=== PATIENT | female | born 1970 | race Caucasian/White ===

== ENCOUNTER 2016-12-22 23:57 | Emergency (ER) | payer SELFPAY ==
[2016-12-23] MEDS ORDERED: Ketorolac INJ* 60 MG/2 ML VIAL IM ONE (00:55)
--- NOTE | 2016-12-23 01:08 | ED ---
Librado Sanchez Erika, scribed for Júnior Campos MD on 12/23/16 at 0058 . Upper Extremity Pain - HPI Summary HPI Summary: Patient is a 46-year-old female presenting to the ED with a CC of constant left elbow and right wrist pain. Pt reports that she tripped on a pot hole and fell down [employer]. Pain was partially alleviated by 2 Aleve taken around 23:30. Pain is aggravated by movement. 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 Of Injury: Fall From A Standing Position Onset/Duration: Traumatic, Still Present Timing: Constant Severity Currently: Moderate Pain Location: Elbow - L, Wrist - R Aggravating Factor(s): Movement Alleviating Factor(s): OTC Meds Associated Signs & Symptoms: Positive: Negative - Allergies/Home Medications Allergies/Adverse Reactions: Allergies Allergy/AdvReac Type Severity Reaction Status Date / Time Codeine Allergy Rash Verified 12/23/16 00:06 Morphine Allergy See Comment Verified 12/23/16 00:06 PMH/Surg Hx/FS Hx/Imm Hx Psychiatric History: Reports: Hx Substance Abuse - Surgical History Surgery Procedure, Year, and Place: mesenteric artery surgery Infectious Disease History: Yes Infectious Disease History: Denies: Traveled Outside the [place] in Last 30 Days - Family History Family History: Denies FHx GI disease - Social History Alcohol Use: Occasionally Hx Substance Use: No Substance Use Type: Reports: None Hx Tobacco Use: No Smoking Status (MU): Never Smoked Tobacco Review of Systems Negative: Fever Positive: Arthralgia - L elbow, R wrist All Other Systems Reviewed And Are Negative: Yes Physical Exam Triage Information Reviewed: Yes Vital Signs On Initial Exam: Initial Vitals Temp Pulse Resp BP Pulse Ox 97.8 F 87 18 139/109 98 12/23/16 00:01 12/23/16 00:01 12/23/16 00:01 12/23/16 00:01 12/23/16 00:01 Vital Signs Reviewed: Yes Appearance: Positive: Well-Appearing, No Pain Distress Skin: Positive: Warm Head/Face: Positive: Normal Head/Face Inspection Eyes: Positive: NELLY ENT: Positive: Hearing grossly normal Neck: Positive: Supple Respiratory/Lung Sounds: Positive: Clear to Auscultation, Breath Sounds Present Cardiovascular: Positive: Normal Abdomen Description: Positive: Nontender, Soft Musculoskeletal: Positive: Other - mild tenderness to motion lt elbow, rt wrist do deformity Neurological: Positive: Sensory/Motor Intact, Alert, Oriented to Person Place, Time Psychiatric: Positive: Affect/Mood Appropriate Diagnostics - Vital Signs Vital Signs Temp Pulse Resp BP Pulse Ox 12/23/16 00:01 97.8 F 87 18 139/109 98 - Laboratory Lab Statement: Any lab studies that have been ordered have been reviewed, and results considered in the medical decision making process. - Radiology L elbow XR Xray Interpretation: No Acute Changes Radiology Interpretation Completed By: ED Physician R wrist XR Xray Interpretation: No Acute Changes Radiology Interpretation Completed By: ED Physician Re-Evaluation - Re-Evaluation First Eval Change: Improved Course/Dx - Course Assessment/Plan: A 46 y/o F presents to the ED with a CC of left elbow and right wrist pain. XRs show no acute findings. Patient declined Toradol in the ED. Pt was given a sling and a splint. Patient will be discharged home with follow up from orthopedics. - Diagnoses Provider Diagnoses: Multiple contusions Discharge - Discharge Plan Condition: Stable Disposition: HOME Patient Education Materials: Contusion in Adults (ED) Referrals: Sara Scott MD [Medical Doctor] - Additional Instructions: Please follow up with orthopedics. The documentation as recorded by the Librado abreu Erika accurately reflects the service I personally performed and the decisions made by , Júnior Campos MD.
[2016-12-23 01:28] VITALS: BP 121/85
--- NOTE | 2016-12-23 07:16 | RAD ---
INDICATION: Left elbow injury. TECHNIQUE: 2 views of the left elbow were obtained. FINDINGS: The bones are normal alignment. There is a joint effusion present. There is slight irregularity along the articular surface of the radial head suspicious for a nondisplaced fracture. IMPRESSION: JOINT EFFUSION AND PROBABLE NONDISPLACED FRACTURE OF THE RADIAL HEAD.
--- NOTE | 2016-12-23 07:27 | RAD ---
INDICATION: Right wrist injury. TECHNIQUE: 2 views of the right wrist were obtained. FINDINGS: There is diffuse soft tissue swelling. There is deformity of the distal radius which appears to be secondary to an old healed fracture. There are several calcific densities which project posterior to the carpal bones. The largest of these appears well-corticated and is likely old although a small acute fracture cannot be excluded. The results of this exam were discussed with Dr. Pfeiffer. IMPRESSION: LIMITED STUDY DEFORMITY OF THE DISTAL RADIUS MOST CONSISTENT WITH AN OLD FRACTURE. IN ADDITION THERE ARE SEVERAL CALCIFIC DENSITIES DORSAL TO THE CARPAL BONES. THE POSSIBILITY OF ACUTE FRACTURE CANNOT BE EXCLUDED. IF THE PATIENT'S SYMPTOMS PERSIST RECOMMEND A CT OF THE WRIST FOR FURTHER EVALUATION.
--- NOTE | 2016-12-23 10:27 | CONSULT ---
Consult Consult: Dr. Parra called after reviewing the x-rays and has a concern for possible fractures in both the4 wrist and the elbow. She was treated appropriately but I called to make sure she remained compliant with the splint and sling and to encourage F/U. I gave her Dr. 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
== END 2016-12-23 01:28 | disposition home or self-care (01) ==
LOC: ED 23:57
DX: S60.211A Contusion of right wrist, initial encounter (principal); S50.02XA Contusion of left elbow, initial encounter; W19.XXXA Unspecified fall, initial encounter; Y93.9 Activity, unspecified; Y92.9 Unspecified place or not applicable; Y99.9 Unspecified external cause status
CPT/HCPCS: 96372; 99282; J1885

== ENCOUNTER 2017-01-02 08:42 | Emergency (ER) | payer MEDICAID ==
--- NOTE | 2017-01-02 09:42 | RAD ---
HISTORY: Fall, wrist pain, left wrist COMPARISONS: None VIEWS: 3, Frontal, lateral, and oblique views of the left wrist FINDINGS: BONE DENSITY: Normal. BONES: There is a faint linear lucency of the neck of the scaphoid on the oblique view JOINTS: There is no arthropathy. ALIGNMENT: There is no dislocation. SOFT TISSUES: Unremarkable. OTHER FINDINGS: None. IMPRESSION: QUESTIONABLE NONDISPLACED SCAPHOID FRACTURE.
--- NOTE | 2017-01-02 11:31 | ED ---
Upper Extremity Pain - HPI Summary HPI Summary: 46F presents with left wrist pain for a week. She states she fell a week ago and has noticed that the pain has been constant in her left wrist. She states she did not have pain in her left wrist initially likely because she had distracting injuries in her left elbow and right wrist and states she broke her left elbow. She denies any numbness or tingling. She is right handed. - History of Current Complaint Chief Complaint: EDExtremityUpper Stated Complaint: ARM INJURY Time Seen by Provider: 01/02/17 10:54 - Allergies/Home Medications Allergies/Adverse Reactions: Allergies Allergy/AdvReac Type Severity Reaction Status Date / Time Codeine Allergy Rash Verified 01/02/17 08:45 Morphine Allergy See Comment Verified 01/02/17 08:45 PMH/Surg Hx/FS Hx/Imm Hx Endocrine/Hematology History: Denies: Hx Anticoagulant Therapy Respiratory History: Denies: Hx Asthma Psychiatric History: Reports: Hx Substance Abuse - Surgical History Surgery Procedure, Year, and Place: mesenteric artery surgery Infectious Disease History: Yes Infectious Disease History: Denies: Traveled Outside the [place] in Last 30 Days - Family History Family History: Denies FHx GI disease - Social History Alcohol Use: Occasionally Hx Substance Use: No Substance Use Type: Reports: None Hx Tobacco Use: No Smoking Status (MU): Never Smoked Tobacco Review of Systems Negative: Fever Negative: Chest Pain Negative: Shortness Of Breath Positive: Myalgia - left wrist pain All Other Systems Reviewed And Are Negative: Yes Physical Exam Triage Information Reviewed: Yes Vital Signs On Initial Exam: Initial Vitals Temp Pulse Resp BP Pulse Ox 97.7 F 83 16 152/105 98 01/02/17 08:45 01/02/17 08:45 01/02/17 08:45 01/02/17 08:45 01/02/17 08:45 Vital Signs Reviewed: Yes Appearance: Positive: Well-Appearing Skin: Positive: Warm, Dry Head/Face: Positive: Normal Head/Face Inspection Eyes: Positive: Normal, Conjunctiva Clear Respiratory/Lung Sounds: Positive: Clear to Auscultation, Breath Sounds Present Cardiovascular: Positive: Normal, RRR Musculoskeletal: Positive: Limited @ - left wrist due to pain, Other - positive snuff box tenderness, good pulses, capillary refill< 2 secs, Procedures - Splinting Location: left wrist Hand-Made Type: fiberglass Splint: thumb spica Pre-Proc Neuro Vasc Exam: normal Post-Proc Neuro Vasc Exam: normal Diagnostics - Vital Signs Vital Signs Temp Pulse Resp BP Pulse Ox 01/02/17 10:10 97.3 F 75 16 123/89 100 01/02/17 08:45 97.7 F 83 16 152/105 98 - Laboratory Lab Statement: Any lab studies that have been ordered have been reviewed, and results considered in the medical decision making process. - Radiology wrist Xray Interpretation: Positive (See Comments) - QUESTIONABLE NONDISPLACED SCAPHOID FRACTURE. Radiology Interpretation Completed By: Radiologist Course/Dx - Course Course Of Treatment: 46F presents with left wrist pain for a week. fell a week ago and had distracting injuries at the time so did not notice wrist pain. states no xray taken of wrist. is right handed. on exam has snuff box tenderness. xray read as possible scaphoid fracture. placed in thumb spica splint and told to follow up with ortho which patient already has appointment on Saturday for. patient understands and agrees with plan - Diagnoses Differential Diagnosis/HQI/PQRI: Positive: Fracture (Closed), Strain, Sprain Provider Diagnoses: Fracture of scaphoid of left wrist Discharge - Discharge Plan Condition: Good Disposition: HOME Prescriptions: HYDROcodone/ACETAMIN 5-325 MG* [[place] 5-325 TAB*] 1 tab PO Q6H PRN #10 tab MDD 4 PRN Reason: Pain Patient Education Materials: Scaphoid Fracture (ED) Forms: *Work Release Referrals: No Primary Care Phys,NOPCP [Primary Care Provider] - Additional Instructions: Follow up with ortho Take Tylenol or ibuprofen every 6 hours as needed for pain, take narcotic for break through pain every 6 hours Apply ice, rest, elevate Keep splint on area Return to ED if develop any new or worsening symptoms
[2017-01-02 11:36] VITALS: BP 123/71
== END 2017-01-02 11:58 | disposition home or self-care (01) ==
LOC: ED 08:42
DX: S62.002A Unspecified fracture of navicular [scaphoid] bone of left wrist, initial encounter for closed fracture (principal); M25.532 Pain in left wrist; W19.XXXA Unspecified fall, initial encounter; Y93.9 Activity, unspecified; Y92.9 Unspecified place or not applicable
CPT/HCPCS: 99282

== ENCOUNTER 2017-08-19 17:30 | Emergency (ER) | payer MEDICAID, OTHER ==
[2017-08-19] MEDS ORDERED: Ondansetron INJ* 2 MG/ML VIAL IV ONE (19:45)
[2017-08-19] MEDS ORDERED: HYDROmorphone INJ* 2 MG/ML CARPUJECT SYRINGE IV SLOW PU ONE (19:45)
[2017-08-19] MEDS ORDERED: NS 0.9% 1000 ML* 1,000 ML IV ONE (19:45)
[2017-08-19 19:47] LABS: Hematocrit 43 % (35-47); Hemoglobin 14.8 g/dl (12.0-16.0); Mean Corpuscular HGB Conc 34 g/dl (31-36); Mean Corpuscular Hemoglobin 32 pg (27-31); Mean Corpuscular Volume 94 fL (80-97); Mean Platelet Volume 9 um3 (7.4-10.4); Red Blood Count 4.59 10^6/ul (4.0-5.4); Red Cell Distribution Width 13 % (10.5-15); White Blood Count 6.7 10^3/ul (3.5-10.8)
[2017-08-19 19:58] LABS: ALT 12 U/L (7-52); AST 15 U/L (13-39); Albumin 4.2 g/dL (3.2-5.2); Alkaline Phosphatase 64 U/L (34-104); Anion Gap 6 mmol/L (2-11); BUN/Creatinine Ratio 15.1 (8-20); Blood Urea Nitrogen 14 mg/dL (6-24); C Reactive Protein 2.25 mg/L (< 5.00); CO2 Carbon Dioxide 24 mmol/L (22-32); Chloride 108 mmol/L (101-111); Creatine Kinase 42 U/L (10-223); EGFR African American 83.1 (>60); EGFR Non-African American 64.6 (>60); Globulin 2.5 g/dL (2-4); Glucose 89 mg/dL (70-100); Potassium 3.8 mmol/L (3.5-5.0); Sodium 138 mmol/L (133-145); Total Protein 6.7 g/dL (6.4-8.9)
[2017-08-19 20:06] LABS: Urine Bacteria Absent (Absent); Urine Bilirubin Negative (Negative); Urine Glucose Negative (Negative); Urine Nitrite Negative (Negative)
[2017-08-19 21:07] LABS: Erythrocyte Sed Rate 7 mm/Hr (0-14)
[2017-08-19] MEDS ORDERED: Iohexol 300* (CONTRAST) 10 ML SDV IV ONE (21:09)
[2017-08-20 01:18] LABS: Lipase 23 U/L (11.0-82.0)
[2017-08-20 01:20] LABS: Troponin I 0.01 ng/mL (<0.04)
[2017-08-20 01:46] LABS: Benzodiazepine Urine Screen None Detected (None Detect)
[2017-08-20] MEDS ORDERED: Iohexol 350* (CONTRAST) 500 ML MDV IV ONE ×2 (02:30→02:43)
--- NOTE | 2017-08-20 05:22 | ED ---
Chanell Sanchez Gabriel, scribed for Rikki Marte on 08/19/17 at 1929 . Abdominal Pain/Female - HPI Summary HPI Summary: This patient is a 47 year old F BIBA to [facility] accompanied by family with a chief complaint of ABD pain that began this morning and has gotten worse throughout the day. The patient rates the pain 9/10 in severity. Patient reports abdominal distention , difficulty passing gas, and diarrhea. Patient denies vomiting, chest pain, and SOB. 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 - History of Current Complaint Chief Complaint: EDAbdPain Stated Complaint: ABD PAIN Time Seen by Provider: 08/19/17 19:20 Hx Obtained From: Patient Onset/Duration: Lasting Days, Still Present Timing: Constant Severity Currently: Severe Pain Intensity: 9 Pain Scale Used: 0-10 Numeric Location: Diffuse Associated Signs and Symptoms: Positive: Negative - SOB, Diarrhea, Other: - trouble passing gas, distended ABD. Negative: Chest Pain, Vomiting Allergies/Adverse Reactions: Allergies Allergy/AdvReac Type Severity Reaction Status Date / Time Codeine Allergy Rash Verified 01/02/17 08:45 Morphine Allergy See Comment Verified 01/02/17 08:45 PMH/Surg Hx/FS Hx/Imm Hx Previously Healthy: No Endocrine/Hematology History: Denies: Hx Anticoagulant Therapy Respiratory History: Denies: Hx Asthma GI History: Reports: Other GI Disorders - SMA syndrome Psychiatric History: Reports: Hx Substance Abuse - Surgical History Surgery Procedure, Year, and Place: mesenteric artery surgery Infectious Disease History: No Infectious Disease History: Denies: Traveled Outside the [place] in Last 30 Days - Family History Known Family History: Positive: Cardiac Disease - [place] father , Hypertension, Other - breast cancer Negative: Diabetes Family History: Denies FHx GI disease - Social History Alcohol Use: Occasionally Hx Substance Use: No Substance Use Type: Reports: None Hx Tobacco Use: No Smoking Status (MU): Never Smoked Tobacco Review of Systems Negative: Chest Pain Negative: Shortness Of Breath Positive: Abdominal Pain, Diarrhea, Other - distended ABD, trouble passing gas. Negative: Vomiting All Other Systems Reviewed And Are Negative: Yes Physical Exam - Summary Physical Exam Summary: Appearance: Well appearing, no pain distress Skin: warm, dry, reflects adequate perfusion Head/face: normal Eyes: EOMI, NELLY ENT: normal Neck: supple, non-tender Respiratory: CTA, breath sounds present Cardiovascular: RRR, pulses symmetrical Abdomen: diffuse abdominal tenderness, abdominal scar Bowel: present Musculoskeletal: normal, strength/ROM intact Neuro: normal, sensory motor intact, A&Ox3 Triage Information Reviewed: Yes Vital Signs On Initial Exam: Initial Vitals Temp Pulse Resp BP Pulse Ox 98.1 F 84 16 161/98 99 08/19/17 17:46 08/19/17 17:46 08/19/17 17:46 08/19/17 17:46 08/19/17 17:46 Vital Signs Reviewed: Yes - [place] Coma Scale Coma Scale Total: 15 Diagnostics - Vital Signs Vital Signs Temp Pulse Resp BP Pulse Ox 08/19/17 17:46 98.1 F 84 16 161/98 99 - Laboratory Lab Results: Lab Results 08/19/17 08/19/17 08/19/17 Range/Units 19:30 19:30 19:30 WBC 6.7 (3.5-10.8) 10^3/ul RBC 4.59 (4.0-5.4) 10^6/ul Hgb 14.8 (12.0-16.0) g/dl Hct 43 (35-47) % MCV 94 (80-97) fL MCH 32 H (27-31) pg MCHC 34 (31-36) g/dl RDW 13 (10.5-15) % Plt Count 220 (150-450) 10^3/ul MPV 9 (7.4-10.4) um3 Neut % (Auto) 60.1 (38-83) % Lymph % (Auto) 32.1 (25-47) % [place] % (Auto) 5.8 (1-9) % Eos % (Auto) 1.0 (0-6) % Baso % (Auto) 1.0 (0-2) % Absolute Neuts (auto) 4.0 (1.5-7.7) 10^3/ul Absolute Lymphs (auto) 2.2 (1.0-4.8) 10^3/ul Absolute Monos (auto) 0.4 (0-0.8) 10^3/ul Absolute Eos (auto) 0.1 (0-0.6) 10^3/ul Absolute Basos (auto) 0.1 (0-0.2) 10^3/ul Absolute Nucleated RBC 0 10^3/ul Nucleated RBC % 0 ESR 7 (0-14) mm/Hr INR (Anticoag Therapy) (0.89-1.11) APTT (26.0-36.3) seconds Sodium 138 (133-145) mmol/L Potassium 3.8 (3.5-5.0) mmol/L Chloride 108 (101-111) mmol/L Carbon Dioxide 24 (22-32) mmol/L Anion Gap 6 (2-11) mmol/L BUN 14 (6-24) mg/dL Creatinine 0.93 (0.51-0.95) mg/dL Est GFR ( Amer) 83.1 (>60) Est GFR (Non-Af Amer) 64.6 (>60) BUN/Creatinine Ratio 15.1 (8-20) Glucose 89 (70-100) mg/dL Lactic Acid 0.9 (0.5-2.0) mmol/L Calcium 9.0 (8.6-10.3) mg/dL Total Bilirubin 0.40 (0.2-1.0) mg/dL AST 15 (13-39) U/L ALT 12 (7-52) U/L Alkaline Phosphatase 64 (34-104) U/L Total Creatine Kinase 42 (10-223) U/L Troponin I 0.01 (<0.04) ng/mL C-Reactive Protein 2.25 (< 5.00) mg/L Total Protein 6.7 (6.4-8.9) g/dL Albumin 4.2 (3.2-5.2) g/dL Globulin 2.5 (2-4) g/dL Albumin/Globulin Ratio 1.7 (1-3) Lipase 23 (11.0-82.0) U/L Urine Color Urine Appearance Urine pH (5-9) Ur Specific [place] (1.010-1.030) Urine Protein (Negative) Urine Ketones (Negative) Urine Blood (Negative) Urine Nitrate (Negative) Urine Bilirubin (Negative) Urine Urobilinogen (Negative) Ur Leukocyte Esterase (Negative) Urine WBC (Auto) (Absent) Urine RBC (Auto) (Absent) Ur Squamous Epith Cells (Absent) Urine Bacteria (Absent) Urine Glucose (Negative) Urine Opiates Screen (None Detect) Ur Barbiturates Screen (None Detect) Ur Phencyclidine Scrn (None Detect) Ur Amphetamines Screen (None Detect) U Benzodiazepines Scrn (None Detect) Urine Cocaine Screen (None Detect) U Cannabinoids Screen (None Detect) 08/19/17 08/19/17 08/20/17 Range/Units 19:30 19:30 01:16 WBC (3.5-10.8) 10^3/ul RBC (4.0-5.4) 10^6/ul Hgb (12.0-16.0) g/dl Hct (35-47) % MCV (80-97) fL MCH (27-31) pg MCHC (31-36) g/dl RDW (10.5-15) % Plt Count (150-450) 10^3/ul MPV (7.4-10.4) um3 Neut % (Auto) (38-83) % Lymph % (Auto) (25-47) % [place] % (Auto) (1-9) % Eos % (Auto) (0-6) % Baso % (Auto) (0-2) % Absolute Neuts (auto) (1.5-7.7) 10^3/ul Absolute Lymphs (auto) (1.0-4.8) 10^3/ul Absolute Monos (auto) (0-0.8) 10^3/ul Absolute Eos (auto) (0-0.6) 10^3/ul Absolute Basos (auto) (0-0.2) 10^3/ul Absolute Nucleated RBC 10^3/ul Nucleated RBC % ESR (0-14) mm/Hr INR (Anticoag Therapy) 0.82 L (0.89-1.11) APTT 28.5 (26.0-36.3) seconds Sodium (133-145) mmol/L Potassium (3.5-5.0) mmol/L Chloride (101-111) mmol/L Carbon Dioxide (22-32) mmol/L Anion Gap (2-11) mmol/L BUN (6-24) mg/dL Creatinine (0.51-0.95) mg/dL Est GFR ( Amer) (>60) Est GFR (Non-Af Amer) (>60) BUN/Creatinine Ratio (8-20) Glucose (70-100) mg/dL Lactic Acid (0.5-2.0) mmol/L Calcium (8.6-10.3) mg/dL Total Bilirubin (0.2-1.0) mg/dL AST (13-39) U/L ALT (7-52) U/L Alkaline Phosphatase (34-104) U/L Total Creatine Kinase (10-223) U/L Troponin I (<0.04) ng/mL C-Reactive Protein (< 5.00) mg/L Total Protein (6.4-8.9) g/dL Albumin (3.2-5.2) g/dL Globulin (2-4) g/dL Albumin/Globulin Ratio (1-3) Lipase (11.0-82.0) U/L Urine Color Yellow Urine Appearance Cloudy Urine pH 5.0 (5-9) Ur Specific [place] 1.016 (1.010-1.030) Urine Protein Negative (Negative) Urine Ketones Negative (Negative) Urine Blood 3+ H (Negative) Urine Nitrate Negative (Negative) Urine Bilirubin Negative (Negative) Urine Urobilinogen Negative (Negative) Ur Leukocyte Esterase Negative (Negative) Urine WBC (Auto) Trace(0-5/hpf) (Absent) Urine RBC (Auto) 3+(>10/hpf) H (Absent) Ur Squamous Epith Cells Present H (Absent) Urine Bacteria Absent (Absent) Urine Glucose Negative (Negative) Urine Opiates Screen None detected (None Detect) Ur Barbiturates Screen None detected (None Detect) Ur Phencyclidine Scrn None detected (None Detect) Ur Amphetamines Screen None detected (None Detect) U Benzodiazepines Scrn None detected (None Detect) Urine Cocaine Screen None detected (None Detect) U Cannabinoids Screen None detected (None Detect) Result Diagrams: 08/19/17 19:30 08/19/17 19:30 Lab Statement: Any lab studies that have been ordered have been reviewed, and results considered in the medical decision making process. - CT CT ABD/Pelvis CT Interpretation Completed By: Radiologist - No acute disease ED physician has reviewed this radiology report and agrees. - EKG 19:52 Cardiac Rate: Bradycardia EKG Rhythm: Sinus Bradycardia - 57 BPM EKG Interpretation: No acute changes Abdominal Pain Fem Course/Dx - Course Course Of Treatment: This patient is a 47 year old F BIBA to [facility] accompanied by family with a chief complaint of ABD pain that began this morning and has gotten worse throughout the day. An EKG reveals sinus bradycardia at [address] ABD/ Pelvis reveals, per radiologist, No acute disease. Blood and urine were obtained with test results showing no significant abnormalities. In the ED course the patient was given IV fluids, Hydromorphone HCL, Iohexol, and Ondansetron. Pt is in pain and is asking for Dilaudid, there is no indication that the patient needs Dilaudid presently. We discussed patient care with Dr. Lanier and they suggested to discharge the patient. cta of abdomen is negative for sma syndrome,. Patient will be discharged with follow up with GI. The patient is agreeable with this plan. - Diagnoses Differential Diagnosis: Positive: Appendicitis, Bowel Obstruction, Diverticulitis, Irritable Bowel Syndrome, Pancreatitis, Renal Colic Provider Diagnoses: Pain, abdominal, nonspecific - Provider Notifications Discussed Care Of Patient With: Susy Lanier Time Discussed With Above Provider: 00:45 Instructed by Provider To: Other - We discussed patient care with Dr. Lanier and they agreed to admit the patient for non-specific ABD pain. Discharge - Discharge Plan Condition: Stable Disposition: HOME Prescriptions: Pantoprazole TAB (NF) [Protonix TAB (NF)] 40 mg PO DAILY #30 tab Patient Education Materials: Pantoprazole (By mouth) Referrals: No Primary Care Phys,NOPCP [Primary Care Provider] - Nahid Art MD [Medical Doctor] - 3 Days Additional Instructions: RETURN TO THE EMERGENCY DEPARTMENT FOR CHANGING OR WORSENING SYMPTOMS. The documentation as recorded by the Chanell abreu Gabriel accurately reflects the service I personally performed and the decisions made by , Rikki Marte.
[2017-08-20 05:23] VITALS: BP 107/79
--- NOTE | 2017-08-20 06:19 | CONS ---
CONSULTATION REPORT: DATE OF CONSULTATION: 08/20/17 - EMERGENCY DEPT TIME OF EVALUATION: 0100 PRIMARY CARE PHYSICIAN: The patient does not have a primary care physician. REQUESTING PHYSICIAN FOR CONSULTATION: Rikki Marte MD REASON FOR CONSULTATION: Evaluation for admission. CHIEF COMPLAINT: Abdominal pain. HISTORY OF PRESENT ILLNESS: This is a 47-year-old female with a past medical history of SMA obstruction with intestinal ischemia, status post surgical repair back in 2012, who presents to the emergency room with abdominal pain. The patient states this started this morning, it was dull in nature, and she began walking around and it became worse, persistently worse with ambulating. She has been nauseated. No vomiting. She has had loose stools all day. She has not yet plugged in to see a primary care physician for the past year since she has moved here from [place]. She has had decrease in appetite. Her last menstrual period was 2 days ago. She denies any recent antibiotics. No recent travel. No shortness of breath. No chest pain. No URI illness. She states her symptoms are similar to when she had her emergency surgery for her SMA obstruction. Otherwise, remaining review of systems is negative. In the emergency room, the patient had labs, imaging. She was given 1 mg of Dilaudid, referred to the hospitalist service for further evaluation. PAST MEDICAL HISTORY: 1. History of SMA obstruction with intestinal ischemia, status post duodenal repair and surgery in [facility] in 2012. 2. History of pelvic congestion syndrome. 3. History of DVT. 4. History of cholecystectomy. 5. History of multiple wrist surgeries on the right. MEDICATIONS: None. ALLERGIES: CODEINE and MORPHINE. FAMILY HISTORY: No history of GI or vascular issues. 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 She quit smoking 15 years ago. She drinks socially and no illicit drug use. Her healthcare proxy is her ex- , Basil Hauser. Code status is full code. REVIEW OF SYSTEMS: A 14-point review of systems as mentioned in the HPI. Pertinent positives and negatives as mentioned in the HPI, otherwise negative. PHYSICAL EXAM: Vitals: Temp 98.1, pulse rate 84, respiratory rate 16, oxygen saturation 99% on room air, blood pressure 161/98. General: Some mild discomfort. No acute distress. HEENT: Head is normocephalic. Pupils are equal and reactive. Anicteric. Oropharynx: Mucous membranes are moist. No erythema or exudate. Neck: Supple. No lymphadenopathy. Cardiac: Regular rate and rhythm. No murmurs, rubs, or gallops. Respiratory: Clear to auscultation. No wheezes, rhonchi, or rales. Abdomen: Hyperactive bowel sounds, soft, mild distention. Tenderness, mostly in the epigastric, left upper quadrant region. No rebound or guarding. Extremities: No clubbing, cyanosis, or edema. +1 DPs. Neurologic: Alert and oriented x3. No focal neurologic deficits. DIAGNOSTIC STUDIES/LAB DATA: White count 6.7, hemoglobin 14.8, hematocrit 43, platelets 220. INR 0.82. Sodium 138, potassium 3.8, chloride 108, bicarb 24, BUN 14, creatinine 0.93, glucose 89. Troponin 0.01. Lipase 23. Urinalysis: + 3 blood, presence of squamous cells. Urine tox screen is negative. Abdominal and pelvis CT, status post surgery of the stomach and proximal small bowel without evidence for gastric or small bowel obstruction, status post cholecystectomy. There was prominent intrahepatic and extrahepatic biliary system, likely post cholecystectomy. She had a small low-attenuation lesion of the liver dome, cannot be adequately characterized. Kidneys enhanced and excreted contrast symmetrically without hydro. No free air or significant ascites. ASSESSMENT: This is a 47-year-old female with a past medical history of SMA obstruction with duodenal repair, who presents to the emergency room with worsening abdominal pain. 1. Abdominal pain. Assessment: The patient's laboratory workup and imaging are unremarkable; however, pain appears to be out of proportion to her physical exam. There is concern that this is similar to her presentation 4 years ago when she had an SMA obstruction. I recommend that this needs to be further evaluated with imaging prior to admission. If this is a SMA issue, then she needs to be seen by Vascular Surgery, especially if she had emergent surgery in the past with intestinal ischemia. I recommended this to Dr. Marte further evaluation. If this is unremarkable, then we will admit her for observation. TIME SPENT: Patient time, greater than 60 minutes spent doing this consultation , more than half time spent in direct patient contact. Thank you for this consultation. [id number]/[facility] #: [id number] [facility]
--- NOTE | 2017-08-20 07:45 | RAD ---
INDICATION: Diffuse abdominal tenderness. COMPARISON: Comparison is made with a prior CT of the abdomen and pelvis from July 30, 2008. TECHNIQUE: A CT scan of the abdomen and pelvis was performed with intravenous and oral contrast following intravenous injection of 97 ml of Omnipaque 300 nonionic contrast. Contiguous axial sections were obtained from the lung bases through the symphysis pubis. Images were reconstructed in the coronal and sagittal planes. FINDINGS: There is mild dependent bilateral lower lobe subsegmental atelectasis. No pleural effusion is present. The liver and spleen are normal in size without significant focal abnormality. There is a hypodense lesion in the superior portion of the right hepatic lobe measuring 1.2 cm in size which is unchanged from the prior CT study. The patient is status post cholecystectomy. There is mild extrahepatic ductal distention which appears similar to the prior study consistent with postcholecystectomy changes. The pancreas appears slightly prominent although unchanged from the prior study. The kidneys and adrenal glands are normal in size. No hydronephrosis is seen. No significant focal renal abnormality is seen. The aorta is normal in caliber and demonstrates homogeneous contrast opacification. No significant enlarged retroperitoneal lymph nodes are seen. There are post surgical changes in the right upper quadrant which involve the small bowel and appear to involve the adjacent antrum of the stomach. There is mild dilatation of the proximal duodenum. The small bowel and colon otherwise appears nondistended. The appendix is not visualized. There is no evidence for diverticulitis or colitis. The uterus is anteverted and mildly enlarged. No free intraperitoneal air or fluid is seen. No significant focal osseous abnormality is seen. IMPRESSION: 1. POSTSURGICAL CHANGES IN THE RIGHT UPPER QUADRANT INVOLVING THE SMALL BOWEL AND STOMACH. THERE IS DILATATION OF THE PROXIMAL DUODENUM. 2. STATUS POST CHOLECYSTECTOMY. 3. STABLE SMALL HYPODENSE HEPATIC LESION.
--- NOTE | 2017-08-20 09:20 | RAD ---
Indication: SMA syndrome, abdominal pain. Contrast: Administered 83.3 ml of OMNIPAQUE 350 mg/ml CTA of the abdominal aorta was performed. Coronal and sagittal reconstructed images were obtained. Comparison is made with previous exam dated August 19, 2017. Celiac axis and superior mesenteric artery are grossly unremarkable. The origins are widely patent on both the celiac axis and the superior mesenteric artery. Inferior mesenteric artery also appears to be widely patent. The patient is status post resection of the horizontal portion of the duodenum. Anastomosis is noted in the right upper quadrant. No evidence of free intraperitoneal air is noted. No evidence of bowel obstruction is noted with contrast throughout the colon. The lung bases demonstrate no pleural fluid, nodules or masses. Heart is of normal size without evidence of pericardial effusion. Spleen is normal in size. No adrenal lesions are noted. The kidneys demonstrate symmetric nephrograms without focal lesions. No retroperitoneal lymphadenopathy is noted. No dilated loops of bowel are noted. CT of the pelvis demonstrates no retroperitoneal or pelvic adenopathy. Urinary bladder is distended. Uterus and ovaries are unremarkable. No hernias are noted. The abdominal aorta demonstrates no evidence of aneurysmal dilatation. Common and external iliac arteries are grossly unremarkable. IMPRESSION: Postoperative changes are noted. Superior mesenteric artery and celiac axis are widely patent. No evidence of any other masses or fluid collections are noted.
== END 2017-08-20 05:24 | disposition home or self-care (01) ==
LOC: ED 17:30
DX: R10.9 Unspecified abdominal pain (principal)
CPT/HCPCS: 36415; 74174; 74177; 80053; 80307; 81003; 81015; 82550; 83605; 83690; 84484; 84702; 85025; 85610; 85652; 85730; 86140; 93005; 96374; 96375; 99285; J1170; J2405; Q9967

== ENCOUNTER 2018-07-18 07:24 | Day surgery (SDC) | payer OTHER ==
[~2018-07-18 07:24] MED LIST: Buffered Lidocaine 0.9% SYRIN* 5 ML/SYR SYRINGE INTRADERM ONE; Famotidine IV* 10 MG/ML 2 ML (20 mg) IV ONE
[2018-07-18] MEDS ORDERED: Heparin VIAL(*) 5000 UNITS/ML VIAL (FIVE THOUSAND) ONE (07:33)
[2018-07-18] MEDS ORDERED: Buffered Lidocaine 0.9% SYRIN* 5 ML/SYR SYRINGE ONE (07:34)
[2018-07-18] MEDS ORDERED: Famotidine IV* 10 MG/ML 2 ML (20 mg) ONE (07:34)
[2018-07-18 08:13] LABS: Hematocrit 35 % (35-47); Hemoglobin 11.6 g/dl (12.0-16.0); Mean Corpuscular HGB Conc 33 g/dl (31-36); Mean Corpuscular Hemoglobin 28 pg (27-31); Mean Corpuscular Volume 83 fL (80-97); Mean Platelet Volume 9.1 um3 (7.4-10.4); Platelet Count 242 10^3/ul (150-450); Red Cell Distribution Width 15 % (10.5-15); White Blood Count 5.1 10^3/ul (3.5-10.8)
[2018-07-18] MEDS ORDERED: Midazolam* 1 MG/ML 5 ML VIAL (5 MG) ONE (08:31)
[2018-07-18] MEDS ORDERED: Dexamethasone IV* 4 MG/ML 1 ML (4 MG) ONE (08:31)
[2018-07-18] MEDS ORDERED: Ketorolac INJ* 30 MG/ML 1 ML VIAL ONE (08:31)
[2018-07-18] MEDS ORDERED: fentaNYL* 50 MCG/ML 2 ML VIAL (100 MCG VIAL) ONE ×3 (08:31→11:56)
[2018-07-18] MEDS ORDERED: Propofol* 10 MG/ML 20 ML BTL IV PUSH ONE (08:31)
[2018-07-18] MEDS ORDERED: Ondansetron INJ* 2 MG/ML VIAL ONE (08:31)
[2018-07-18] MEDS ORDERED: Lidocaine 2% PF * 5 ML VIAL ONE (08:31)
[2018-07-18] MEDS ORDERED: Metoclopramide IV* 5 MG/ML 2 ML VIAL ONE (09:07)
[2018-07-18] MEDS ORDERED: Naloxone* 0.4 MG/ML 1 ML VIAL IV PRN (09:52)
[2018-07-18] MEDS ORDERED: Ondansetron INJ* 2 MG/ML VIAL IV PRN (09:52)
[2018-07-18] MEDS ORDERED: Ibuprofen TAB* 600 MG PO PRN (11:01)
[2018-07-18] MEDS ORDERED: HYDROcodone/ACETAMIN 5-325 MG* 1 TAB PO PRN (11:02)
[2018-07-18] MEDS: fentaNYL* 50 MCG/ML 2 ML VIAL (100 MCG VIAL) IV PRN ×2 (11:57→12:22)
[2018-07-18] MEDS ORDERED: Ibuprofen TAB* 600 MG ONE (12:14)
[2018-07-18 12:48] VITALS: BP 120/80
--- NOTE | 2018-07-19 04:17 | OP ---
CC: [facility] OPERATIVE REPORT: DATE OF OPERATION: 07/18/18 DATE OF : 70 SURGEON: Dr. Mujica. ANESTHESIOLOGIST: Dr. Gonzales. ANESTHESIA: General endotracheal anesthesia. PRE-OP DIAGNOSIS: Menorrhagia. POST-OP DIAGNOSIS: Menorrhagia. OPERATIVE PROCEDURE: Dilation, hysteroscopy, curettage, NovaSure ablation. ESTIMATED BLOOD LOSS: Minimal, less than 20 cc. FINDINGS: Posterior cervix, midline uterus. No adnexal masses palpated. On hysteroscopy, the endom etrium appeared fluffy throughout with areas that appeared consistent with endometrial polyps. Cavit y length was 5.5 cm. The cavity width was 4.7. The power was 142 and the time was 63 seconds. The fluid deficit was 200 cc. After the NovaSure ablation, on hysteroscopy, the endometrium appeared cau terized throughout. The uterus sounded to 10. COMPLICATIONS: None. COUNTS: Sponge, lap, and needle count correct x2. CONDITION: The patient was brought to the recovery room, awake and stable condition. DESCRIPTION OF PROCEDURE: The patient was brought to the operating room. When general endotracheal was found to be adequate, the patient was prepped and draped in the usual sterile fashion in the dors al lithotomy position. Sequential compression devices were placed and activated and used throughout the surgery. Time-out was performed. Exam under anesthesia was performed with the above findings not ed. A long weighted speculum was placed in the vagina. The anterior lip of the cervix was grasped w ith a single-tooth tenaculum. The uterus was sounded to 10. Cervical length was determined to be 4. 5 and the cervix was gently and easily dilated with a graduated Hegar dilators. The hysteroscope was introduced with the above findings noted. The hysteroscope was removed. Endometrial curettage was p erformed and endometrial curettings were sent to pathology. The NovaSure was placed, tested and acti vated and the time was 63 seconds. The NovaSure was removed. The hysteroscope was reintroduced and an excellent ablation was noted. Hysteroscope was removed. The single-tooth tenaculum was removed f rom the anterior lip of the cervix. Excellent hemostasis was noted. All instruments were removed fr om the vagina and the patient was brought to the recovery room, awake and in stable condition. [id number]/[facility] #: [id number]
== END 2018-07-18 13:12 | disposition home or self-care (01) ==
LOC: OR 07:24
PROVIDERS: ATTEND Obstetrics & Gynecology
DX: N92.1 Excessive and frequent menstruation with irregular cycle (principal); N85.01 Benign endometrial hyperplasia; Z87.891 Personal history of nicotine dependence; Z88.5 Allergy status to narcotic agent
CPT/HCPCS: 36415; 81025; 85027; 86850; 86900; 86901; 88305; A9270-GY; J1100; J1644; J1885; J2250; J2405; J2704; J2765; J3010

== ENCOUNTER 2018-11-16 05:20 | Emergency (ER) | payer OTHER ==
--- OUTSIDE RECORDS SUMMARY | 2018-11-16 05:28 | XMS REPORT | Continuity of Care Document ---
:1970 External Reference #:[id number] Author Name Micaela Rivera Care Team Providers Name Role Phone Mynor Daugherty D.O. Primary Care Physician Unavailable Payers Date Identification Numbers Payment Provider Subscriber Policy Number: [id number] Pepe Hauser Group Number: [id number] [address] PayID: [id number] [place] [address] Advance Directives Description No Information Available Problems Date Description Provider Status Onset: 11/14/2018 Closed trimalleolar fracture Nima Rivera MD Active Family History Date Family Member(s) Observation Comments Father Hypertension Father Heart Disease [place] x 2 Mother Hypertension Siblings 1 Sister at 40 of breast cancer. 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 Cigarette Use Quit 10 Years Ago ETOH Use Currently consumes 1-2 drinks per day x alcohol 4 or more times a week Tobacco Use Start: Unknown End: Patient is a former quit 15 years ago Unknown smoker Smoking Status Reviewed: 11/14/18 Patient is a former quit 15 years ago smoker Seat Belt/Car Seat always uses seat belt Allergies, Adverse Reactions, Alerts Date Description Reaction Status Severity Comments 12/24/2016 Codeine Active 12/24/2016 Morphine Active Medications Medication Date Status Form Strength Qnty SIG Indications Ordering Provider Enoxaparin Active Solution 40mg/0.4ML S82.852A Nima Sodium 019 MD Nicole Oxycodone HCL Active Unknown 000 Hydrocodone Hx Tablets 5-325mg 12tabs one tabet Dvorah Bitartrate/Fidel 018 - po q6 prn MD [place] taminophen strong 018 pain Ibuprofen Hx Tablets 600mg 20tabs one Dvorah 018 - tablet by MD [place] mouth q6 018 as needed pain Hydrocodone Hx Tablets 5-300mg 12tabs one Dvorah Bitartrate/Fidel 018 - tablet po MD [place] taminophen q6 hours 018 prn strong pain No Active Hx Unknown Medications 018 - 018 Alprazolam Hx Tablets 1mg 1-2 tabs Unknown 000 - as needed for sleep 018 Zyrtec Allergy Hx Capsules 10mg take one Unknown 000 - tablet by mouth in 019 the evening Mucinex Hx Tablets ER 600mg twice a Unknown 000 - 12HR day as needed 019 Immunizations Description No Information Available Vital Signs Date Vital Result Comment 11/14/2018 11:39am Height 64 inches 5'4" Weight 170.00 lb BP Systolic 150 mmHg BP Diastolic 98 mmHg Respiratory Rate 14 /min Body Temperature 96.7 F Pain Level 7 BMI (Body Mass Index) 29.2 kg/m2 07/28/2018 1:01pm Height 64 inches 5'4" Weight 174.50 lb with boots Heart Rate 80 /min BP Systolic Sitting 138 mmHg BP Diastolic Sitting 82 mmHg Body Temperature 98.5 F O2 % BldC Oximetry 97 % BMI (Body Mass Index) 29.9 kg/m2 07/14/2018 8:35am Height 64 inches 5'4" Weight 174.25 lb Heart Rate 76 /min BP Systolic Sitting 124 mmHg BP Diastolic Sitting 82 mmHg Body Temperature 98.6 F O2 % BldC Oximetry 99 % BMI (Body Mass Index) 29.9 kg/m2 06/23/2018 9:34am Height 64 inches 5'4" Weight 174.50 lb Heart Rate 72 /min BP Systolic Sitting 118 mmHg BP Diastolic Sitting 78 mmHg Body Temperature 98.2 F O2 % BldC Oximetry 97 % BMI (Body Mass Index) 29.9 kg/m2 06/16/2018 11:36am Height 64 inches 5'4" Weight 175.00 lb Heart Rate 82 /min BP Systolic Sitting 118 mmHg BP Diastolic Sitting 78 mmHg Body Temperature 98.7 F O2 % BldC Oximetry 97 % BMI (Body Mass Index) 30.0 kg/m2 06/09/2018 9:02am Height 64 inches 5'4" Weight 174.00 lb Heart Rate 75 /min BP Systolic Sitting 122 mmHg BP Diastolic Sitting 78 mmHg Body Temperature 98.3 F O2 % BldC Oximetry 97 % BMI (Body Mass Index) 29.9 kg/m2 01/02/2017 1:53pm Height 64 inches 5'4" Weight 150.00 lb Heart Rate 78 /min BP Systolic 130 mmHg BP Diastolic 84 mmHg Respiratory Rate 16 /min Body Temperature 97.4 F Pain Level 5 BMI (Body Mass Index) 25.7 kg/m2 12/24/2016 11:13am Height 64 inches 5'4" Weight 150.00 lb Heart Rate 78 /min BP Systolic 110 mmHg BP Diastolic 72 mmHg Respiratory Rate 14 /min Body Temperature 98.2 F Pain Level 8 BMI (Body Mass Index) 25.7 kg/m2 Results Test Date Facility Test Result H/L Range Note Laboratory test 07/18/2018 [facility] Surgical SEE RESULT [address] [place] [address] [phone] CBC No Diff 07/18/2018 [facility] White Blood 5.1 10^3/uL N 3.5-10.[address] [place] [address] [phone] Red Blood Count 4.20 10^6/uL N 4.00-5.40 Hemoglobin 11.6 g/dL Low 12.0-16.0 Hematocrit 35 % N 35-47 Mean Corpuscular Volume 83 fL N 80-97 Mean Corpuscular Hemoglobin 28 pg N 27-31 Mean Corpuscular HGB Conc 33 g/dL N 31-36 Red Cell Distribution Width 15 % N 10.5-15 Platelet Count 242 10^3/uL N 150-450 Mean Platelet Volume 9.1 um3 N 7.4-10.4 Type & Screen 07/18/2018 [facility] Patient Blood Type AB Positive [address] [place] [address] [phone] Antibody Screen NEGATIVE 1 SEE RESULT BELOW Name: KARLEE HAUSER : [address]: Adin Mujica MD Acct: [id number] Unit: [id number] AGE: 48 Location: OR Re07/18/18 SEX: F Status: [facility] [place] SPEC: [id number] FOX: 07/18/[address] [facility] [address]: Adin Mujica MD REQ: [id number] RECD: 07/18/18 STATUS: SOUT _ ORDERED: LEVEL 4 FINAL DIAGNOSIS Uterus, endometrium, curettage: -- Simple hyperplasia without atypia. -- Focal glandular and stromal breakdown. -- Few fragments of smooth muscle suggestive of submucosal leiomyoma. PRE-OPERATIVE DIAGNOSIS Excessive and frequent menstruation with irregular cycle GROSS DESCRIPTION The specimen is received in formalin labeled, Endometrial Curettings, and consists of a 3.8 x 2.9 x 0.5 cm aggregate of mcneal-red irregular soft tissue fragments admixed with red-brown blood clot. Entirely submitted, two cassettes. Signed by and Reported on: Lior Tavares MD [address] END OF REPORT DEPARTMENT OF PATHOLOGY, [address] [place] [address] Lior Tavares M.D. Director [facility] # [id number] Procedures Date Code Description Status 11/14/2018 15278 application of short leg splint Completed 07/18/2018 44859 Hysteroscopy With Endometrial Ablation (Any Method) Completed 06/16/2018 88954 Endometrial Sampling W Or W/O Endocervical BX W Or W/O Completed Cerv Dilat 09/23/2017 [id number] Mammogram Completed Encounters Type Date Location Provider Dx Diagnosis Office Visit 07/28/2018 1:00p [facility] Adin Mujica MD R30.0 Dysuria of [employer] at [place] N85.00 Endometrial hyperplasia, unspecified Z86.718 Personal history of other venous thrombosis and embolism Z80.3 Family history of malignant neoplasm of breast [facility] N92.1 Excessive and [facility] frequent at [place] menstruation with irregular cycle N88.2 Stricture and stenosis of cervix uteri Z86.718 Personal history of other venous thrombosis and embolism Z80.3 Family history of malignant neoplasm of breast Office Visit 06/09/2018 9:30a [facility] Adin Mujica, Z01.419 Encntr for experience specialist [facility] at MD exam (general) [place] (routine) w/o abn findings N92.1 Excessive and frequent menstruation with irregular cycle Z80.3 Family history of malignant neoplasm of breast Z87.410 Personal history of cervical dysplasia Z86.718 Personal history of other venous thrombosis and embolism Office Visit 04/03/2018 [facility] J S. R10.12 Left upper 12:00p [facility] MD quadrant pain AT [place] Office Visit 08/20/2017 [facility] Susy Lanier, R10.10 Upper abdominal 10:17a Assoc,pc DO pain, Hospitalists unspecified K55.069 Acute infarction of intestine, part and extent unspecified R11.0 Nausea Office Visit 01/02/2017 2:00p Orthopedic Sara S63.512A Sp[facility] carpal joint of C.M.A. left wrist, initial encounter Office Visit 12/24/2016 10:45a Orthopedic Sara S63.511A Sp[facility] carpal joint of C.M.A. right wrist, initial encounter S52.125A Nondisp fx of head of left radius, init for clos fx Office 09/14/2008 DO Not Use Catie 535.50 Gastritis & Visit 8:30a [facility] Varn, N.P. Gastroduodenitis Unspec W/O Hemorrhage 311 Depressive Disorder Not Elsewhere Spec Office 08/23/2008 DO Not Use Catie 535.50 Gastritis & Visit 10:15a [facility] [facility], N[facility] Gastroduodenitis Unspec W/O Hemorrhage 729.1 Myalgia & Myositis Unspec 719.40 Pain Joint Site Unspec Office Visit 08/03/2008 DO Not Use Catie Varn, 789.06 Pain Abdominal 3:30p [facility] Epigastric 789.01 Pain Abdominal Right Upper Quadrant Office Visit 07/30/2008 1:00p DO Not Use Catie Varn, 789.03 Pain Abdominal [facility] Right Lower Quadrant 789.01 Pain Abdominal Right Upper Quadrant 599.7 Hematuria Office Visit 03/09/2008 8:45a DO Not Use Catie Varn, 724.2 Lumbago [facility] 311 Depressive Disorder Not Elsewhere Spec Office Visit 02/27/2008 2:15p DO Not Use Catie Varn, 724.2 Lumbago [facility] 728.85 Spasm Muscle Office Visit 09/30/2007 3:45p DO Not Use Catie Varn, 724.1 Pain Thoracic [facility] N[facility] 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 Examination Plan of Treatment 11/14/2018 - Nima Rivera, MDS82.852A Displaced trimalleolar fracture of left lower leg, initial eNew Medication:Enoxaparin Sodium 40 mg/0.4ML -Follow up: Follow Up: 13-15 days postop
[2018-11-16] MEDS ORDERED: HYDROcodone/ACETAMIN 5-325 MG* 1 TAB PO ONE ×2 (05:54→13:29)
[2018-11-16 06:53] LABS: Albumin 3.7 g/dL (3.2-5.2); Albumin/Globulin Ratio 1.4 (1-3); BUN/Creatinine Ratio 14.6 (8-20); C Reactive Protein 36.17 mg/L (<8.01); Calcium 8.8 mg/dL (8.6-10.3); EGFR African American 69.2 (>60); EGFR Non-African American 57.2 (>60); Globulin 2.6 g/dL (2-4); Potassium 3.7 mmol/L (3.5-5.0); Total Bilirubin 0.5 mg/dL (0.2-1.0); Total Protein 6.3 g/dL (6.4-8.9)
[2018-11-16 06:56] LABS: Hematocrit 40 % (35-47); Hemoglobin 13.3 g/dl (12.0-16.0); Mean Corpuscular HGB Conc 34 g/dl (31-36); Mean Corpuscular Hemoglobin 30 pg (27-31); Mean Corpuscular Volume 89 fL (80-97); Red Blood Count 4.46 10^6/ul (4.00-5.40); Red Cell Distribution Width 17 % (10.5-15); White Blood Count 7.3 10^3/ul (3.5-10.8)
[2018-11-16 08:14] LABS: ABS Basophils 0 10^3/ul (0-0.2); ABS Eosinophils 0.1 10^3/ul (0-0.6); ABS Lymphocytes 1.1 10^3/ul (1.0-4.8); ABS Monocytes 0.4 10^3/ul (0-0.8); ABS Neutrophils 5.7 10^3/ul (1.5-7.7); ABS Nucleated RBC 0 10^3/ul; Eosinophil % 1.3 %; Lymphocyte % 15.7 %; Nucleated Red Blood Cells % 0.1; Platelet Count Platelets clumped. 10^3/ul (150-450)
[2018-11-16] MEDS ORDERED: fentaNYL* 50 MCG/ML 2 ML VIAL (100 MCG VIAL) IV SLOW PU ONE ×3 (08:30→12:16)
[2018-11-16] MEDS ORDERED: Ondansetron INJ* 2 MG/ML VIAL IV ONE (10:20)
--- NOTE | 2018-11-16 12:31 | ED ---
Lower Extremity - HPI Summary HPI Summary: Patient is a 48-year-old female presenting to the ED with severe left lower extremity pain worsening since yesterday. She states she had a trimalleolar fracture occurred 3 days ago, this was splinted and later was casted. She states since the casting the pain has been worse. She called for an ambulance this morning due to her severe pain which was uncontrolled with at home pain medications. She denies any numbness or tingling.07/02 pain. She has surgery scheduled for Saturday. - History of Current Complaint Chief Complaint: EDExtremityLower Stated Complaint: LEG PAIN Time Seen by Provider: 11/16/18 05:36 Hx Obtained From: Patient Mechanism Of Injury: Twisted Onset of Pain: Hours Severity Initially: Moderate Severity Currently: Moderate Pain Intensity: 7 Pain Scale Used: 0-10 Numeric Timing: Constant Location: Is Discrete @ - left ankle pain Character Of Pain: Aching Associated Signs And Symptoms: Positive: Swelling, Bruising. Negative: Redness , Fever, Weakness, Abdominal Pain, Knee Pain Aggravating Factor(s): Standing, Ambulation Alleviating Factor(s): Rest Able to Bear Weight: No - Risk Factors Gout Risk Factors: Negative DVT Risk Factors: Negative Septic Arthritis Risk Factor: Negative - Allergies/Home Medications Allergies/Adverse Reactions: Allergies Allergy/AdvReac Type Severity Reaction Status Date / Time codeine Allergy Severe Rash Verified 07/14/18 16:11 morphine Allergy Severe See Comment Verified 07/14/18 16:11 Seasonal Allergies Allergy Intermediate Eyes Uncoded 07/14/18 16:11 Itchy/Swollen/Red/Watery Home Medications: Home Medications Enoxaparin(*) [Lovenox(*)] 40 mg SUBCUT Q24HR 11/16/18 [History Confirmed ] oxyCODONE/Acetamin 10/325(NF) [Percocet 10/325 (NF)] 1 tab PO Q6HR PRN 11/16/18 [History Confirmed 11/16/18] PMH/Surg Hx/FS Hx/Imm Hx Previously Healthy: Yes Endocrine/Hematology History: Denies: Hx Anticoagulant Therapy, Hx Diabetes Cardiovascular History: Reports: Other Cardiovascular Problems/Disorders - History of DVT 2016 after knee surgery Denies: Hx Hypertension Respiratory History: Denies: Hx Asthma, Other Respiratory Problems/Disorders GI History: Reports: Hx Gastroesophageal Reflux Disease - history of, none recent, Other GI Disorders - SMA obstruction with intestinal ischemia,duodenal repair [id number] History: Reports: Hx Kidney Stones - passed on own, Other Problems/ Disorders - Excessive & freq menstruation with irreg cycle,pelvic congestion syndrome Denies: Hx Renal Disease Musculoskeletal History: Reports: Other Musculoskeletal History - 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 Right hand surgery-multiple last one 2008. Release bilateral elbows 2009. Cholecystectomy 1994. Tonsillectomy age 15 Hx Anesthesia Reactions: No - Immunization History Hx Pertussis Vaccination: No Immunizations Up to Date: Yes Infectious Disease History: No Infectious Disease History: Denies: Traveled Outside the [place] in Last 30 Days - Family History Known Family History: Positive: Cardiac Disease - [place] father , Hypertension, Other - breast cancer Negative: Diabetes Family History: Denies FHx GI disease - Social History Occupation: Employed Full-time Lives: With Family Alcohol Use: Daily Alcohol Amount: glass or two Hx Substance Use: No Substance Use Type: Reports: None Hx Tobacco Use: No Smoking Status (MU): Former Smoker Type: Cigarettes Amount Used/How Often: 1 PPD for 20 years Have You Smoked in the Last Year: No Review of Systems Constitutional: Negative Negative: Fever, Chills, Fatigue, Skin Diaphoresis Negative: Palpitations, Chest Pain Negative: Shortness Of Breath, Cough Genitourinary: Negative Positive: no symptoms reported, see HPI Positive: Arthralgia, Myalgia Positive: Bruising Neurological: Negative All Other Systems Reviewed And Are Negative: Yes Physical Exam Triage Information Reviewed: Yes Vital Signs On Initial Exam: Initial Vitals Pulse BP Pulse Ox 90 129/92 94 11/16/18 05:28 11/16/18 05:28 11/16/18 05:28 Vital Signs Reviewed: Yes Appearance: Positive: Well-Appearing, Well-Nourished Skin: Positive: Warm, Skin Color Reflects Adequate Perfusion Head/Face: Positive: Normal Head/Face Inspection Eyes: Positive: EOMI, NELLY, Conjunctiva Clear Neck: Positive: Supple, No Lymphadenopathy Respiratory/Lung Sounds: Positive: Clear to Auscultation, Breath Sounds Present Cardiovascular: Positive: RRR, Pulses are Symmetrical in both Upper and Lower Extremities Musculoskeletal: Positive: Pain @ - left ankle Neurological: Positive: Sensory/Motor Intact, Alert, Oriented to Person Place, Time, Speech Normal Psychiatric: Positive: Affect/Mood Appropriate Diagnostics - Vital Signs Vital Signs Temp Pulse Resp BP Pulse Ox 11/16/18 11:00 63 98 11/16/18 10:58 61 103/70 98 11/16/18 10:38 63 100/67 97 11/16/18 10:32 18 11/16/18 10:30 71 96 11/16/18 10:29 67 107/85 95 11/16/18 09:12 20 11/16/18 09:08 114/75 11/16/18 08:58 104/66 11/16/18 08:28 115/73 11/16/18 07:58 100/63 11/16/18 07:28 97/62 11/16/18 06:58 114/76 11/16/18 06:29 105/78 11/16/18 06:01 86 93 11/16/18 05:58 86 117/78 94 11/16/18 05:32 101.6 F 90 16 129/92 95 11/16/18 05:29 97 91 11/16/18 05:28 90 129/92 94 - Laboratory Lab Results: Lab Results 11/16/18 11/16/18 11/16/18 Range/Units 06:21 06:21 06:21 WBC 7.3 (3.5-10.8) 10^3/ul RBC 4.46 (4.00-5.40) 10^6/ul Hgb 13.3 (12.0-16.0) g/dl Hct 40 (35-47) % MCV 89 (80-97) fL MCH 30 (27-31) pg MCHC 34 (31-36) g/dl RDW 17 H (10.5-15) % Plt Count Platelets clumped. H (150-450) 10^3/ul MPV Not Reportable Neut % (Auto) 78.0 % Lymph % (Auto) 15.7 % [place] % (Auto) 4.8 % Eos % (Auto) 1.3 % Baso % (Auto) 0.2 % Absolute Neuts (auto) 5.7 (1.5-7.7) 10^3/ul Absolute Lymphs (auto) 1.1 (1.0-4.8) 10^3/ul Absolute Monos (auto) 0.4 (0-0.8) 10^3/ul Absolute Eos (auto) 0.1 (0-0.6) 10^3/ul Absolute Basos (auto) 0 (0-0.2) 10^3/ul Absolute Nucleated RBC 0 10^3/ul Nucleated RBC % 0.1 Clumped Platelets Present ESR Cancelled D-Dimer, Quantitative 284 H (Less Than 230) ng/mL Sodium 136 (135-145) mmol/L Potassium 3.7 (3.5-5.0) mmol/L Chloride 104 (101-111) mmol/L Carbon Dioxide 25 (22-32) mmol/L Anion Gap 7 (2-11) mmol/L BUN 15 (6-24) mg/dL Creatinine 1.03 H (0.51-0.95) mg/dL Est GFR ( Amer) 69.2 (>60) Est GFR (Non-Af Amer) 57.2 (>60) BUN/Creatinine Ratio 14.6 (8-20) Glucose 94 (70-100) mg/dL Calcium 8.8 (8.6-10.3) mg/dL Total Bilirubin 0.50 (0.2-1.0) mg/dL AST 88 H (13-39) U/L ALT 90 H (7-52) U/L Alkaline Phosphatase 109 H (34-104) U/L C-Reactive Protein 36.17 H (<8.01) mg/L Total Protein 6.3 L (6.4-8.9) g/dL Albumin 3.7 (3.2-5.2) g/dL Globulin 2.6 (2-4) g/dL Albumin/Globulin Ratio 1.4 (1-3) Result Diagrams: 11/16/18 06:21 11/16/18 06:21 Lab Statement: Any lab studies that have been ordered have been reviewed, and results considered in the medical decision making process. Lower Extremity Course/Dx - Course Course Of Treatment: Patient is evaluated for left lower extremity pain. She endorses 10/10 pain. Vital signs show 101.6 temporal, heart rate 90, respirations 16, 95% on room air and 129/92. She states she has been otherwise well offers no complaints other than the lower extremity discomfort. She arrives in a cast. This was removed. Lower ext shows no erythema and small amount of ecchymosis to the medial side of the ankle. No evidence of DVT. US obtained which is negative for DVT. Discussed case with Dr. Scott who recently come see patient in the ED. Labs obtained which are WNL except for slightly CRP. No leukocytosis. Blood cultures obtained. She is given oxy and fentanyl x 3 throughout her stay in the ED. As there is no open fx and negative for DVT , she is resplinted with posterior U-slab. Extra padding directly over the ankle. She is comfortable with new splint. Unknown why fever while in the ED, however this was reduced with tylenol. She continues to feel well otherwise. She is well for discharge and will call orthopedic clinic tomorrow to finalize surgical plans for Saturday. She understands to return if she develops any worsening or changing symptoms. She voices no concerns at this time. - Diagnoses Differential Diagnosis/HQI/PQRI: Positive: Contusion, Dislocation, Fracture ( Closed), Fracture (Open), Sprain, Strain Provider Diagnoses: Trimalleolar fracture of ankle, closed, Cast discomfort - Physician Notifications Discussed Care Of Patient With: Sara Scott Instructed by Provider To: MD Will See In ED Discharge - Sign-Out/Discharge Documenting (check all that apply): Patient Departure Patient Received Moderate/Deep Sedation with Procedure: No - Discharge Plan Condition: Stable Disposition: HOME Prescriptions: Ondansetron ODT TAB* [Zofran 4 MG Odt TAB*] 4 mg PO Q6H PRN #12 tab.odt MDD 4 PRN Reason: Nausea oxyCODONE/Acetamin 10/325(NF) [Percocet 10/325 (NF)] 1 tab PO Q6H #12 tab MDD 4 Referrals: Nima Rivera MD [Medical Doctor] - Mynor Daugherty DO [Primary Care Provider] - Additional Instructions: Please call orthopedic clinic office tomorrow morning to confirm appointment on Saturday If he develop any worsening pain or symptoms not well controlled with your at home pain medication and Zofran, return to the ED Keep the area elevated above your heart as much as possible Continue with your Lovenox - Billing Disposition and Condition Condition: STABLE Disposition: Home
[2018-11-16 13:42] VITALS: BP 125/85
--- NOTE | 2018-11-16 14:33 | CONS ---
CONSULTATION REPORT: DATE OF CONSULTATION: 11/16/18 - EMERGENCY DEPT CHIEF COMPLAINT: Left ankle pain. HISTORY OF PRESENT ILLNESS: Karlee is a 48-year-old female who suffered a fracture of her left ankle last . She saw Dr. Rivera on Saturday. It is a trimalleolar fracture. He reduced the fracture and put her in a splint. She has been taking Percocet at home for pain control. This morning, she developed severe pain and came back to the emergency room for evaluation. PHYSICAL EXAM: On evaluation, she has bit of a fever, but on exam of her left ankle there is only mild to moderate swelling, little bit of ecchymosis. There is no tenderness in her calf at all. Clinically, her ankle is well aligned. There is no tenting in the skin. Her neurovascular function is intact. Her skin is intact. DIAGNOSTIC STUDIES/LAB DATA: I reviewed her x-rays and a Doppler study which was negative for DVT. The x-rays show the ankle to be in very good position. IMPRESSION: Increased pain after left ankle fracture. PLAN: Plan is for re-splinting in a more comfortable splint. She is scheduled to have surgery with Dr. Rivera later this week. She will call for a followup if her pain remains poorly controlled. I do not see any evidence that the fever is caused by any problem with the left ankle. [id number]/[facility] #: [id number] MTDD
== END 2018-11-16 13:36 | disposition home or self-care (01) ==
LOC: ED 05:20
DX: S82.852D Displaced trimalleolar fracture of left lower leg, subsequent encounter for closed fracture with routine healing (principal); R60.9 Edema, unspecified; M79.662 Pain in left lower leg; X58.XXXD Exposure to other specified factors, subsequent encounter; Z87.891 Personal history of nicotine dependence
CPT/HCPCS: 36415; 80053; 85025; 85379; 85652; 86140; 87040; 96374; 96375; 96376; 99285; J2405; J3010

== ENCOUNTER 2018-11-27 14:57 | Emergency (ER) | payer OTHER ==
[2018-11-27] MEDS ORDERED: oxyCODONE/Acetamin 5/325 MG* TAB PO ONE (15:31)
--- NOTE | 2018-11-27 16:23 | ED ---
Lower Extremity - HPI Summary HPI Summary: 48-year-old female presents with left calf pain for the past couple days. She states she just had surgery 4 days ago for her left ankle by Dr. Cortes. she' s been on Lovenox as she has a history of DVTs. She denies any chest pain or shortness of breath. States pain is a deep ache in the left calf. She denies any increase in swelling. No numbness or tingling. - History of Current Complaint Chief Complaint: EDExtremityLower Stated Complaint: I FEEL LIKE THERES A CLOT IN THE CALF PER PT Time Seen by Provider: 11/27/18 15:13 Pain Intensity: 6 - Allergies/Home Medications Allergies/Adverse Reactions: Allergies Allergy/AdvReac Type Severity Reaction Status Date / Time codeine Allergy Severe Rash Verified 11/19/18 09:37 morphine Allergy Severe See Comment Verified 11/19/18 09:37 Seasonal Allergies Allergy Intermediate Eyes Uncoded 11/19/18 09:37 Itchy/Swollen/Red/Watery Home Medications: Home Medications Acetaminophen [Tylenol Extra Strength] 500 mg PO Q6HR PRN 11/27/18 [History Confirmed 11/27/18] Enoxaparin(*) [Lovenox(*)] 40 mg SUBCUT DAILY 11/27/18 [History Confirmed ] oxyCODONE/Acetamin 5/325 MG* [Percocet 5/325 TAB*] 1 tab PO Q6H PRN 11/27/18 [ History Confirmed 11/27/18] PMH/Surg Hx/FS Hx/Imm Hx Endocrine/Hematology History: Denies: Hx Anticoagulant Therapy, Hx Diabetes Cardiovascular History: Reports: Other Cardiovascular Problems/Disorders - History of DVT 2016 after knee surgery Denies: Hx Hypertension Respiratory History: Denies: Hx Asthma, Other Respiratory Problems/Disorders GI History: Reports: Hx Gastroesophageal Reflux Disease - history of, none recent, Other GI Disorders - SM obstruction with intestinal ischemia,duodenal repair [id number] History: Reports: Hx Kidney Stones - HX OF-passed on own, Other Problems/ Disorders - Excessive & freq menstruation with irreg cycle,pelvic congestion syndrome Denies: Hx Renal Disease Musculoskeletal History: Reports: Hx Arthritis, Other Musculoskeletal History - Auto immune from [id number], [place] disease right hand Sensory History: Reports: Hx Contacts or Glasses - Contacts-INSTRUCTS GIVEN Denies: Hx Hearing Aid Opthamlomology History: Reports: Hx Contacts or Glasses - Contacts-INSTRUCTS GIVEN Neurological History: Reports: Other Neuro Impairments/Disorders - 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 Right hand surgery-multiple last one 2008. Release bilateral elbows 2009. Cholecystectomy 1994. Tonsillectomy age 15. 2016-LEFT KNEE SURGERY. 2018- ENDOMETRIAL ABLATION Hx Anesthesia Reactions: No Infectious Disease History: No Infectious Disease History: Denies: Traveled Outside the [place] in Last 30 Days - Family History Known Family History: Positive: Cardiac Disease - [place] father , Hypertension, Other - breast cancer Negative: Diabetes Family History: Denies FHx GI disease - Social History Alcohol Use: Daily Alcohol Amount: 1-2 PER DAY Hx Substance Use: No Substance Use Type: Reports: None Hx Tobacco Use: No Smoking Status (MU): Former Smoker Type: Cigarettes Amount Used/How Often: 1 PPD for 20 years Have You Smoked in the Last Year: No Review of Systems Negative: Fever Negative: Chest Pain Negative: Shortness Of Breath Positive: Myalgia - left calf pain All Other Systems Reviewed And Are Negative: Yes Physical Exam Triage Information Reviewed: Yes Vital Signs On Initial Exam: Initial Vitals Temp Pulse Resp BP Pulse Ox 96.5 F 108 18 134/98 99 11/27/18 15:01 11/27/18 15:01 11/27/18 15:01 11/27/18 15:01 11/27/18 15:01 Vital Signs Reviewed: Yes Appearance: Positive: Well-Appearing Skin: Positive: Warm, Dry Head/Face: Positive: Normal Head/Face Inspection Eyes: Positive: Normal, Conjunctiva Clear ENT: Positive: Pharynx normal Respiratory/Lung Sounds: Positive: Clear to Auscultation, Breath Sounds Present Cardiovascular: Positive: Normal, RRR Musculoskeletal: Positive: Other - left leg in splint which removed, good pulses , able to wiggle toe, tenderness left calf Neurological: Positive: Normal Psychiatric: Positive: Normal Procedures - Splinting left ankle Location: left ankle Hand-Made Type: orthoglass Splint: posterior walking Pre-Proc Neuro Vasc Exam: normal Post-Proc Neuro Vasc Exam: normal Diagnostics - Vital Signs Vital Signs Temp Pulse Resp BP Pulse Ox 11/27/18 15:46 22 11/27/18 15:01 96.5 F 108 18 134/98 99 - Laboratory Result Diagrams: 11/27/18 16:37 11/27/18 16:37 Lab Statement: Any lab studies that have been ordered have been reviewed, and results considered in the medical decision making process. - Ultrasound No standard instances Ultrasound Interpretation Completed By: Radiologist Summary of Ultrasound Findings: IMPRESSION: NO EVIDENCE OF DEEP VENOUS THROMBOSIS IS IDENTIFIED. Lower Extremity Course/Dx - Course Course Of Treatment: 48-year-old female presents with left calf pain for the past couple days. She states she just had surgery 4 days ago for her left ankle by Dr. Cortes. she's been on Lovenox as she has a history of DVTs. She denies any chest pain or shortness of breath. States pain is a deep ache in the left calf. She denies any increase in swelling. No numbness or tingling. On exam has splint in place so remove the splint. Compartments are soft. Sensation grossly intact. Tenderness in the left calf. Neurovascularly intact. Ultrasound shows no DVT. replaced splint. told to follow up with ortho. patient understand and agrees with plan. - Diagnoses Differential Diagnosis/HQI/PQRI: Positive: Compartment Syndrome, DVT, Strain Provider Diagnoses: Pain of left calf Discharge - Sign-Out/Discharge Documenting (check all that apply): Patient Departure Patient Received Moderate/Deep Sedation with Procedure: No - Discharge Plan Condition: Good Disposition: HOME Patient Education Materials: R.I.C.E. Treatment (ED) Referrals: Mynor Daugherty DO [Primary Care Provider] - Nima Rivera MD [Medical Doctor] - Additional Instructions: Follow up with ortho as scheduled ice, elevate Take pain medication as prescribed continue lovenox Return to ED if develop any new or worsening symptoms - Billing Disposition and Condition Condition: GOOD Disposition: Home
[2018-11-27 16:45] LABS: ABS Basophils 0.1 10^3/ul (0-0.2); ABS Eosinophils 0.1 10^3/ul (0-0.6); ABS Lymphocytes 1.4 10^3/ul (1.0-4.8); ABS Monocytes 0.4 10^3/ul (0-0.8); ABS Neutrophils 5.1 10^3/ul (1.5-7.7); ABS Nucleated RBC 0 10^3/ul; Hematocrit 44 % (35-47); Mean Corpuscular HGB Conc 34 g/dl (31-36); Mean Corpuscular Hemoglobin 30 pg (27-31); Mean Corpuscular Volume 89 fL (80-97); Mean Platelet Volume 7.9 fL (7.4-10.4); Nucleated Red Blood Cells % 0.1; Platelet Count 298 10^3/ul (150-450); Red Blood Count 5.01 10^6/ul (4.00-5.40); Red Cell Distribution Width 16 % (10.5-15); White Blood Count 7.1 10^3/ul (3.5-10.8)
[2018-11-27 16:53] LABS: Activated Partial Thrombo Time 38.9 seconds (26.0-36.3); INR 1.01 (0.77-1.02)
[2018-11-27 17:05] LABS: Albumin 4.4 g/dL (3.2-5.2); Albumin/Globulin Ratio 1.4 (1-3); BUN/Creatinine Ratio 12.5 (8-20); Calcium 9.9 mg/dL (8.6-10.3); EGFR Non-African American 68.6 (>60); Globulin 3.1 g/dL (2-4); Potassium 4.7 mmol/L (3.5-5.0); Total Bilirubin 0.9 mg/dL (0.2-1.0); Total Protein 7.5 g/dL (6.4-8.9)
[2018-11-27 18:36] VITALS: BP 148/97
== END 2018-11-27 18:35 | disposition home or self-care (01) ==
LOC: ED 14:57
DX: M79.662 Pain in left lower leg (principal); Z98.890 Other specified postprocedural states; Z86.718 Personal history of other venous thrombosis and embolism; Z79.01 Long term (current) use of anticoagulants; Z88.5 Allergy status to narcotic agent; Z91.048 Other nonmedicinal substance allergy status; Z87.891 Personal history of nicotine dependence
CPT/HCPCS: 36415; 80053; 85025; 85610; 85730; 99282; A9270-GY

== ENCOUNTER 2019-03-19 08:28 | Day surgery (SDC) | payer OTHER ==
[~2019-03-19 08:28] MED LIST changes: -Buffered Lidocaine 0.9% SYRIN* 5 ML/SYR SYRINGE INTRADERM ONE; +Buffered Lidocaine 1% SYRIN* 1 ML/SYRINGE INTRADERM ONE; -Famotidine IV* 10 MG/ML 2 ML (20 mg) IV ONE; +Lactated Ringers 1000 ML Bag* 1,000 ML IV SCH
[2019-03-19] MEDS ORDERED: ceFAZolin 2 GM in NS PREMIX(*) 2 GM/100 ML BAG IVPB ONE (08:49)
[2019-03-19] MEDS ORDERED: Buffered Lidocaine 1% SYRIN* 1 ML/SYRINGE INTRADERM ONE (08:49)
[2019-03-19] MEDS ORDERED: fentaNYL* 50 MCG/ML 2 ML VIAL (100 MCG VIAL) ONE ×2 (09:18→11:42)
[2019-03-19] MEDS ORDERED: Midazolam* 1 MG/ML 2 ML VIAL (2 MG) ONE (09:18)
[2019-03-19] MEDS ORDERED: Propofol* 10 MG/ML 20 ML BTL ONE ×2 (09:19→09:50)
[2019-03-19] MEDS ORDERED: Acetaminophen TAB* 325 MG PO PRN (11:14)
[2019-03-19] MEDS ORDERED: oxyCODONE TAB* 5 MG TAB PO PRN (11:14)
[2019-03-19] MEDS ORDERED: Ketorolac INJ* 30 MG/ML 1 ML VIAL IV PRN (11:14)
[2019-03-19] MEDS ORDERED: Ondansetron INJ* 2 MG/ML VIAL IV PRN (11:14)
[2019-03-19] MEDS ORDERED: Naloxone* 0.4 MG/ML 1 ML VIAL IV PRN (11:14)
[2019-03-19] MEDS ORDERED: Bupivacaine 0.5% W/EPI SDV* 30 ML VIAL ONE (11:36)
[2019-03-19] MEDS: fentaNYL* 50 MCG/ML 2 ML VIAL (100 MCG VIAL) IV PRN ×2 (11:43→12:10)
[2019-03-19 12:07] VITALS: BP 121/82
--- NOTE | 2019-03-19 12:18 | OP ---
Operative Report - Blank - Operative Report Date of Operation: 03/19/19 Note: PATIENT: Karlee Hauser DATE OF : 1970 DATE OF SURGERY: 03/19/2019 SURGEON: Nima Rivera MD BILINGUAL RECEPTIONIST: TYRELL Alfredo, whos assistance was necessary for positioning, retraction, help with instrumentation, and closure. ANESTHESIOLOGIST: Dr. Vaughan PREOPERATIVE DIAGNOSIS: Left ankle retained hardware POSTOPERATIVE DIAGNOSIS: Left ankle retained hardware OPERATION: 1. Left ankle, removal of implants, deep. 2. Stress fluoroscopy performed by surgeon under anesthesia. ANESTHESIA: MAC IMPLANTS: Removed two 3.5mm Arthrex small fragment screws TOURNIQUET TIME: None SPECIMENS: none ESTIMATED BLOOD LOSS: minimal COMPLICATIONS: none STATUS: Stable from the operating room to the recovery room and then home. INDICATIONS FOR PROCEDURE: Karlee had a prior left ankle fracture and syndesmotic ORIF. The nature and risks of surgery were reviewed in careful detail, in the office as well as the pre-operative holding area. Our discussions regarding the risks of surgery included, but were not limited to, infection, wound problems, nerve injury, neuroma, RSD, persistent symptoms, blood clot, fracture, syndesmotic instability , retained hardware, need for further surgery, post-traumatic arthritis, failure of the surgery, and even the remote chance of catastrophic complication. DESCRIPTION OF PROCEDURE: The patient was seen in the preoperative holding unit and informed written consent was obtained. The appropriate extremity was marked. The patient was then brought to the operating room and carefully positioned on the operating room table. Anesthesia was induced. All bony prominences were padded with great care. A chlorhexidine based pre-scrub was performed followed by a chloraprep prep and drape in standard sterile fashion. A surgical safety pause was then conducted in which we confirmed the appropriate patient, extremity, planned procedure, availability of equipment, indication and administration of prophylactic antibiotics, and DVT prophylaxis in the form of a compression boot on the non-surgical extremity. I injected local anesthetic to the area of the prior surgical incision. I utilized a part of the prior lateral ankle incision. I utilized blunt dissection down to the level of the hardware. I then utilized a scalpel to sharply expose the screw heads. I then removed the screws utilizing a screwdriver without difficulty. The screws came out in their entirety. I then performed stress testing of the syndesmosis under fluoroscopy. I performed an external rotation stress test. No instability was appreciated at the syndesmosis or ankle mortise. Final fluoroscopic images were obtained. At this point, we irrigated copiously and then closed in layers meticulously utilizing 3-0 Monocryl and 3-0 nylon for the skin. A sterile dressing was then applied. The patient was then awakened from anesthesia and transferred to the recovery room in stable condition. There were no complications. All needle and sponge counts were correct at the end of the case. ATTESTATION: I attest I was present and scrubbed and performed the critical portions of the procedure myself. POSTOPERATIVE PLAN: The plan is to remove the sutures in 2 weeks.
== END 2019-03-19 13:25 | disposition home or self-care (01) ==
LOC: OR 08:28
PROVIDERS: ATTEND Orthopaedic Surgery
DX: T84.84XA Pain due to internal orthopedic prosthetic devices, implants and grafts, initial encounter (principal); Y83.1 Surgical operation with implant of artificial internal device as the cause of abnormal reaction of the patient, or of later complication, without mention of misadventure at the time of the procedure; S82.892D Other fracture of left lower leg, subsequent encounter for closed fracture with routine healing; X58.XXXD Exposure to other specified factors, subsequent encounter; Y92.9 Unspecified place or not applicable; Z86.718 Personal history of other venous thrombosis and embolism; Z87.891 Personal history of nicotine dependence; M45.9 Ankylosing spondylitis of unspecified sites in spine
CPT/HCPCS: 76000; 88300; J0690; J2250; J2704; J3010

== ENCOUNTER 2019-11-24 13:16 | Inpatient (IN) | payer OTHER ==
--- NOTE | 2019-11-24 13:51 | ED ---
Abdominal Pain/Female - HPI Summary HPI Summary: Patient is a 49 y/o F presenting to the ED for a chief complaint of left flank pain that radiates into the back. Patient reports decreased food intake due to worsening pain after eating and fever. Her highest fever is reported as 101 F. Patient denies hematuria. She was previously seen at [place] on 11/19/19 and had bloodwork and a CT that showed nephrolithiasis. She was told the stone was passing and to follow up with her PCP. Patient had a follow up with her PCP, Dr. Tao Daugherty, and improved over the weekend after being prescribed Zofran and pain medication. For the last year, patient has had similar symptoms. PMHx is significant for superior mesenteric artery syndrome. PSHx is significant for small bowel resection due to necrotic bowel and knee surgery. Patient is on blood thinners. She has an appointment with GI at the end of November. - History of Current Complaint Chief Complaint: EDAbdPain Stated Complaint: BACK AND SIDE PAIN/FEVER PER PT Time Seen by Provider: 11/24/19 13:42 Hx Obtained From: Patient Onset/Duration: Sudden Onset, Still Present Timing: Constant Severity Initially: Moderate Severity Currently: Moderate Pain Intensity: 6 Pain Scale Used: 0-10 Numeric Location: Flank - Left Radiates: Yes Radiates to: Back Aggravating Factor(s): Food Alleviating Factor(s): Nothing Associated Signs and Symptoms: Positive: Fever - In vitals, 98.6 F, Back Pain. Negative: Urinary Symptoms - Negative hematuria Allergies/Adverse Reactions: Allergies Allergy/AdvReac Type Severity Reaction Status Date / Time codeine Allergy Severe Rash Verified 11/24/19 19:38 morphine AdvReac Severe See Comment Verified 11/24/19 19:38 Seasonal Allergies Allergy Intermediate Eyes Uncoded 11/24/19 19:38 Itchy/Swollen/Red/Watery Home Medications: Home Medications Cyanocobalamin INJ * [Vitamin B12 INJ *] 1,000 mcg IM .EVERY 2 WEEKS 03/11/19 [ History Confirmed 11/24/19] Cholecalciferol CAP/TAB(NF) [Vitamin D3 CAP/TAB (NF)] 5,000 unit PO DAILY [History Confirmed 11/24/19] L.acidoph,Paracasei, B.lactis [Probiotic] 1 each PO DAILY 11/24/19 [History Confirmed 11/24/19] Ondansetron TAB* [Zofran 4 MG Tab*] 4 mg PO Q6H PRN 11/24/19 [History Confirmed 11/24/19] oxyCODONE/Acetamin 5/325 MG* [Percocet 5/325 TAB*] 1 tab PO Q4H PRN 11/24/19 [ History Confirmed 11/24/19] PMH/Surg Hx/FS Hx/Imm Hx Previously Healthy: Yes Endocrine/Hematology History: Denies: Hx Anticoagulant Therapy, Hx Diabetes Cardiovascular History: Reports: Other Cardiovascular Problems/Disorders - History of DVT 2016 after knee surgery Denies: Hx Hypertension Respiratory History: Denies: Hx Asthma, Other Respiratory Problems/Disorders GI History: Reports: Hx Gastroesophageal Reflux Disease - history of, none recent, Other GI Disorders - SM obstruction with intestinal ischemia,superior mesenteric artery syndrome History: Reports: Hx Kidney Stones - HX OF-passed on own, Other Problems/ Disorders - Excessive & freq menstruation with irreg cycle,pelvic congestion syndrome Denies: Hx Renal Disease Musculoskeletal History: Reports: Hx Arthritis, Hx Tendonitis - LEFT ANKLE, Other Musculoskeletal History - 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, [place] disease right hand Sensory History: Reports: Hx Contacts or Glasses - Contacts-INSTRUCTS GIVEN Denies: Hx Legally Blind, Hx Deafness, Hx Hearing Aid Opthamlomology History: Reports: Hx Contacts or Glasses - Contacts-INSTRUCTS GIVEN Denies: Hx Legally Blind EENT History: Denies: Hx Deafness Neurological History: Reports: Other Neuro Impairments/Disorders - 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 Right hand surgery-multiple last one 2008. Release bilateral elbows 2009. Cholecystectomy 1994. Tonsillectomy age 15. 2016-LEFT KNEE SURGERY. 2018- ENDOMETRIAL ABLATION. duodenal repair [id number] Hx Anesthesia Reactions: No Infectious Disease History: No Infectious Disease History: Denies: Traveled Outside the [place] in Last 30 Days - Family History Known Family History: Positive: Cardiac Disease - [place] father , Hypertension, Other - breast cancer Negative: Diabetes Family History: Denies FHx GI disease - Social History Occupation: Employed Full-time Alcohol Use: Daily Alcohol Amount: 1-2 PER DAY Hx Substance Use: No Substance Use Type: Reports: None Hx Tobacco Use: Yes Smoking Status (MU): Former Smoker Type: Cigarettes Amount Used/How Often: 1 PPD for 20 years Have You Smoked in the Last Year: No Review of Systems Positive: Fever - In vitals, 98.6 F, Other - Positive decreased food intake Positive: flank pain - Left. Negative: hematuria Positive: Myalgia - Back that radiates from the flank All Other Systems Reviewed And Are Negative: Yes Physical Exam - Summary Physical Exam Summary: Constitutional: Well-developed, Well-nourished, Alert. (-) Distressed Skin: Warm, Dry HENT: Normocephalic; Atraumatic Eyes: Conjunctiva normal Neck: Musculoskeletal ROM normal neck. (-) JVD, (-) Stridor, (-) Nuchal rigidity Cardio: Rhythm regular, rate normal, Heart sounds normal; Intact distal pulses; Radial pulses are 2+ and symmetric. (-) Murmur Pulmonary/Chest wall: Effort normal. (-) Respiratory distress, (-) Wheezes, (-) Rales Abd: Soft, (-) Distension, (-) Guarding, (-) Rebound. Left sided abdominal tenderness Musculoskeletal: (-) Edema Lymph: (-) Cervical adenopathy Neuro: Alert, Oriented x3 Psych: Mood and affect Normal Triage Information Reviewed: Yes Vital Signs On Initial Exam: Initial Vitals Temp Pulse Resp BP Pulse Ox 98.6 F 111 18 141/116 98 11/24/19 13:18 11/24/19 13:18 11/24/19 13:18 11/24/19 13:18 11/24/19 13:18 Vital Signs Reviewed: Yes Procedures - Sedation Patient Received Moderate/Deep Sedation with Procedure: No Diagnostics - Vital Signs Vital Signs Temp Pulse Resp BP Pulse Ox 11/24/19 13:18 98.6 F 111 18 141/116 98 - Laboratory Result Diagrams: 11/25/19 09:13 11/25/19 09:13 Lab Statement: Any lab studies that have been ordered have been reviewed, and results considered in the medical decision making process. - Ultrasound Abdomen US Ultrasound Interpretation Completed By: Radiologist Summary of Ultrasound Findings: Abdomen US IMPRESSION: THERE IS ECTASIA OF THE COMMON DUCT UP TO 1.1 CM. THE PATIENT IS STATUS POST CHOLECYSTECTOMY. Reviewed by Dr. Slade. Re-Evaluation - Re-Evaluation First Eval Re-Evaluation Time: 15:20 Change: Unchanged Comment: Malachi sent CT findings from 11/19/19 which showed fullness of the left renal collecting system without calculus. Abdominal Pain Fem Course/Dx - Course Course Of Treatment: 49 y/o F w hx SMA syndrome s/p resection small bowel years ago, p/w L sided abdominal pain. - recently seen [facility], CT abdomen and pelvis obtained that showed fullness left renal collecting system. Possible passed kidney stone however patient still having pain. Lasting notable for elevated LFTs (did tke a 1 tylenol q5 hours over the weekend, do not suspect acetaminophed OD). Patient history of a cholecystectomy. Right upper quadrant ultrasound shows mild dilation CBD. Discuss GI who recommended MRCP. At this time, unclear cause of left-sided abdominal pain. Unable to visualize renal arteries on ultrasound (possible nutcracker syndrome given hx SMA syndrome), however left kidney appears grossly normal. Will benefit from GI consult - Diagnoses Provider Diagnoses: Elevated LFTs, Left sided abdominal pain - Provider Notifications Discussed Care Of Patient With: Tana Gayle - At 16:52, Dr. Tana Gayle recommends GI be consulted. At 17:22, Dr. Luis Carlos Rosales recommends an MRCP and admission. At 17:40, Dr. Tana Gayle reviewed the patients case and agrees to admit the patient to [facility] with a diagnosis of elevated LFTs and left sided abdominal pain. Time Discussed With Above Provider: 16:52 Instructed by Provider To: Admit As Inpatient Discharge ED - Sign-Out/Discharge Documenting (check all that apply): Patient Departure - Admit - Discharge Plan Condition: Stable Disposition: ADMITTED TO [facility] - Billing Disposition and Condition Condition: STABLE Disposition: Admitted to [facility] - Attestation Statements Document Initiated by Scribe: Yes Documenting Scribe: Pia Giang Provider For Whom Iesha is Documenting (Include Credential): Sarah Slade MD Scribe Attestation: Pia Sanchez, scribed for Sarah Slade MD on 11/25/19 at 1207. Scribe Documentation Reviewed: Yes Provider Attestation: The documentation as recorded by the scribe, Pia Giang accurately reflects the service I personally performed and the decisions made by me, Saarh Slade MD Status of Scribcalin Document: Viewed
[2019-11-24] MEDS ORDERED: Ketorolac INJ* 30 MG/ML 1 ML VIAL IV ONE (13:57)
[2019-11-24] MEDS ORDERED: NS 0.9% 1000 ML** 1,000 ML IV ONE (14:09)
[2019-11-24 14:29] LABS: ABS Lymphocytes 0.6 10^3/ul (1.0-4.8); ABS Monocytes 0.5 10^3/ul (0-0.8); ABS Neutrophils 2.3 10^3/ul (1.5-7.7); Hematocrit 45 % (35-47); Hemoglobin 15.6 g/dL (12.0-16.0); Lymphocyte % 17.9 %; Mean Corpuscular HGB Conc 35 g/dL (31-36); Mean Corpuscular Hemoglobin 33 pg (27-31); Mean Corpuscular Volume 94 fL (80-97); Mean Platelet Volume 8.6 fL (7.4-10.4); Nucleated Red Blood Cells % 0.4; Platelet Count 159 10^3/uL (150-450); Red Blood Count 4.76 10^6 /uL (3.70-4.87); Red Cell Distribution Width 13 % (10-15); White Blood Count 3.4 10^3/uL (3.5-10.8)
[2019-11-24 14:48] LABS: HCG Pregnancy 1.54 mIU/mL
[2019-11-24 15:06] LABS: AST 249 U/L (13-39); Albumin 4.1 g/dL (3.2-5.2); Albumin/Globulin Ratio 1.5 (1-3); Alkaline Phosphatase 270 U/L (34-104); Anion Gap 12 mmol/L (2-11); BUN/Creatinine Ratio 8.1 (8-20); Blood Urea Nitrogen 6 mg/dL (6-24); CO2 Carbon Dioxide 22 mmol/L (22-32); Calcium 9.1 mg/dL (8.6-10.3); Chloride 104 mmol/L (101-111); EGFR African American 100.9 (>60); EGFR Non-African American 83.4 (>60); Globulin 2.7 g/dL (2-4); Glucose 90 mg/dL (70-100); Potassium 3.8 mmol/L (3.5-5.0); Sodium 138 mmol/L (135-145); Total Protein 6.8 g/dL (6.4-8.9)
[2019-11-24 15:38] LABS: ALT 568 U/L (7-52)
[2019-11-24 16:04] LABS: Urine Appearance Cloudy; Urine Bilirubin Negative (Negative); Urine Blood Negative (Negative); Urine Color Yellow; Urine Glucose Negative (Negative); Urine Ketones 2+ (Negative); Urine Nitrite Negative (Negative); Urine Protein Negative (Negative); Urine Specific Gravity 1.018 (1.010-1.030); Urine Urobilinogen Negative (Negative)
[2019-11-24] MEDS ORDERED: fentaNYL* 50 MCG/ML 2 ML VIAL (100 MCG VIAL) IV SLOW PU ONE (16:30)
[2019-11-24 17:12] LABS: Acetaminophen < 15 mcg/mL
[2019-11-24] MEDS ORDERED: HYDROmorphone INJ* 0.5 MG/0.5 ML SYRINGE IV SLOW PU PRN ×2 (19:33→20:19)
--- NOTE | 2019-11-24 20:58 | HP ---
CC: Dr. Daugherty; Dr. Rosales * HISTORY AND PHYSICAL: DATE OF ADMISSION: 11/24/19 PROVIDER: Shaq Amos NP. PRIMARY CARE PROVIDER: Dr. Daugherty. ATTENDING PHYSICIAN WHILE IN THE HOSPITAL: Dr. Little * (dictated by Shaq Amos NP). CHIEF COMPLAINT: Left-sided abdominal pain. HISTORY OF PRESENT ILLNESS: Ms. Hauser is a 49 female with a past medical history significant for superior mesenteric artery syndrome, history of a DVT after knee surgery, B12 deficiency and anxiety, who presented to the emergency room with complaints of left-sided abdominal pain under her left ribs radiating to her back. The patient reports that her pain started last Saturday, approximately 10 days ago. She reports the pain as coming in waves, intermittent , stabbing, throbbing to aching, which radiates into the back and causes a burning sensation. Due to this pain becoming more frequent and progressively worse, she presented to [facility] on . At that time, she was diagnosed with a kidney stone and she was sent home on Zofran and oxycodone for pain medications. The patient reports that she continued to have pain. She followed up with Dr. Daugherty on Saturday. At that time, it was recommended she have a consultation from GI. The patient is scheduled at the end of the month for evaluation with GI. The patient reports that today the pain was horrible and became significantly worse. She called Dr. Amezquita's office, who recommended that she come to the emergency room for further evaluation. The patient also reports that she has had intermittent fevers since last Saturday. T-max of 101. The patient is currently afebrile at this time. While in the emergency room, the patient had routine lab work drawn. She was found to have elevated ASTs, ALTs and alkaline phosphatase. Due to these findings, hospital medicine was asked to see and evaluate her for admission. PAST MEDICAL HISTORY: Significant for superior mesenteric artery syndrome, history of DVT after knee surgery, vitamin B12 deficiency, anxiety. PAST SURGICAL HISTORY: 1. Cholecystectomy. 2. Right wrist surgery. 3. Mesenteric artery surgery. 4. Knee surgery. 5. Left ankle fracture repair. HOME MEDICATIONS: Include: 1. Vitamin D 5000 units p.o. daily. 2. Oxycodone/acetaminophen 5/325 one tablet every 4 hours as needed for pain. 3. Probiotic 1 tablet p.o. daily. 4. Zofran 4 mg every 6 hours as needed for nausea. 5. Vitamin B12 injections every 2 weeks. ALLERGIES: Sensitivity to MORPHINE causes chest pain and allergy to CODEINE is hives. FAMILY HISTORY: Father with hypertension, [place] in his 60s. Mother with hypertension. No reported history of diabetes. Sister from breast cancer. SOCIAL HISTORY: Denies any tobacco or illicit drug use. She does report daily 1 to 2 glasses of wine. Surrogate decision maker is her ex-. She is a full code. REVIEW OF SYSTEMS: She does report fevers and decreased appetite. Denies any chest pain or edema, cough, hemoptysis or shortness of breath. She does report nausea and chronic diarrhea unchanged from her baseline. She does complain of left- sided abdominal pain. She denies any gross hematuria, dysuria, focal weakness, sensory loss, dysphagia, arthralgias, myalgias, rashes, lesions, open sores, psychosis, or anxiety. PHYSICAL EXAMINATION GENERAL: At this time, Ms. Hauser is a 49-year-old female. She is alert and oriented, resting on the stretcher in the emergency room. She does have moderate left upper quadrant abdominal pain. VITAL SIGNS: Blood pressure 144/79, heart rate 80, respirations 18, O2 saturation 94%, and temperature was 98.6. HEENT: Head is atraumatic, normocephalic. Eyes: EOMs are intact. Sclerae anicteric and not pale. Oral mucosa appeared to be moist. NECK: Supple. LUNGS: Clear to auscultation bilaterally. No wheezes, rales, or rhonchi. CARDIAC: S1, S2. Regular rate and rhythm. No murmurs, rubs, or gallops. ABDOMEN: Soft and nontender. Bowel sounds are present x4. She has no abdominal pain with palpation. EXTREMITIES: She is able to move all 4 extremities. There is no clubbing or cyanosis. NEUROLOGIC: She is awake, alert, oriented x3. Her speech is clear. Thought process is intact. There is no gross focal deficits. DIAGNOSTIC STUDIES/LAB DATA: WBCs are 3.4, RBCs 4.76, hemoglobin 15.6, hematocrit is 45, platelet count was 159. Sodium 138, potassium 3.8, chloride 104, carbon dioxide is 22, anion gap is 12, BUN was 6, creatinine 0.74. Total bilirubin 0.60, ASTs were 249, ALTs were 568, alkaline phosphatase was 270, lipase was 12. Urine was within normal limits with the exception of ketones were 2+ and acetaminophen was less than 15. She had an ultrasound of her abdomen. Radiologist impression: There is ectasia of the common bile duct up to 1.1 cm. The patient is status post cholecystectomy. She has normal kidneys on the left and right. There is no hydronephrosis. No nephrolithiasis. ASSESSMENT AND PLAN: Ms. Hauser is a 49-year-old female with a past medical history significant for superior mesenteric artery syndrome, history of DVT after knee surgery, vitamin B12 deficiency, and anxiety, who presented to emergency room with complaints of progressively worsening left-sided pain. She will be admitted for: 1. Abdominal pain. The patient complains of left upper quadrant abdominal pain. She has a history of SMA in the past for which she has had SMA surgery. I have consulted GI, Dr. Rosales, who has recommended an MRCP to evaluate the common bile duct due to the dilation of 1.1 cm. MRCP has been ordered. We will continue with IV fluids and pain management overnight and observe her for any signs and symptoms of infection. I will place her on a clear liquid diet until further recommendation from GI based on her MRCP. 2. FEN. She can have a clear liquid diet, DVT prophylaxis. I will place her on Lovenox subcu. 3. DVT Prophylaxis. SCD's 4. Code Status. Full code TIME SPENT: Time spent on this admission was 60 minutes, greater than half that time was spent at the bedside reviewing events leading thus far to her hospitalization, performing physical exam, and reviewing my plan of care. I have discussed this with my attending, Dr. Little, he is in agreement with my plan. SHAQ AMOS, CHADD [id number]/[facility] #: [id number] MTDD
[2019-11-24] MEDS: Ketorolac INJ* 15 MG/ML 1 ML VIAL IV PUSH SCH (21:07)
[2019-11-24 22:38] LABS: Influenza A Molecular Negative (Negative); Influenza B Molecular Negative (Negative)
[2019-11-24] MEDS: NS 0.9% 1000 ML** 1,000 ML IV SCH (23:46)
[2019-11-25] MEDS: Ketorolac INJ* 15 MG/ML 1 ML VIAL IV PUSH SCH ×5 (03:36→21:48)
[2019-11-25] MEDS ORDERED: HYDROmorphone INJ* 0.5 MG/0.5 ML SYRINGE IV SLOW PU PRN (05:50)
[2019-11-25 09:23] LABS: ABS Eosinophils 0.1 10^3/ul (0-0.6); ABS Lymphocytes 0.7 10^3/ul (1.0-4.8); ABS Monocytes 0.3 10^3/ul (0-0.8); ABS Neutrophils 1.7 10^3/ul (1.5-7.7); Eosinophil % 3.3 %; Hematocrit 40 % (35-47); Hemoglobin 13.8 g/dL (12.0-16.0); Lymphocyte % 23.7 %; Mean Corpuscular HGB Conc 35 g/dL (31-36); Mean Corpuscular Hemoglobin 33 pg (27-31); Mean Corpuscular Volume 94 fL (80-97); Mean Platelet Volume 8.1 fL (7.4-10.4); Platelet Count 143 10^3/uL (150-450); Red Blood Count 4.22 10^6 /uL (3.70-4.87); Red Cell Distribution Width 13 % (10-15); White Blood Count 2.9 10^3/uL (3.5-10.8)
[2019-11-25 09:29] LABS: INR 0.99 (0.82-1.09)
[2019-11-25 09:39] LABS: Albumin 3.5 g/dL (3.2-5.2); Albumin/Globulin Ratio 1.5 (1-3); BUN/Creatinine Ratio 11.3 (8-20); Calcium 8.1 mg/dL (8.6-10.3); EGFR African American 105.9 (>60); EGFR Non-African American 87.5 (>60); Globulin 2.3 g/dL (2-4); Indirect Bilirubin 0.4 mg/dL (0.3-1.0); Potassium 3.5 mmol/L (3.5-5.0); Total Bilirubin 0.5 mg/dL (0.2-1.0); Total Protein 5.8 g/dL (6.4-8.9)
[2019-11-25 09:53] LABS: % Iron Saturation 18 % (15-55); Iron 51 ug/dL (50-212); Salicylate < 2.50 mg/dL (<30); Total Iron Binding Capacity 279 mcg/dL (250-450); Transferrin 199 mg/dL (203-362)
[2019-11-25 10:11] LABS: Ferritin 254.8 ng/mL (11-307)
[2019-11-25] MEDS: NS 0.9% 1000 ML** 1,000 ML IV SCH ×2 (10:18→21:13)
[2019-11-25 11:37] LABS: Hepatitis B Surface Antigen Nonreactive (Nonreactive)
[2019-11-25] MEDS: HYDROmorphone INJ* 0.5 MG/0.5 ML SYRINGE IV SLOW PU PRN ×4 (11:53→21:19)
[2019-11-25 11:55] LABS: Hepatitis C Antibody Negative (Negative)
--- NOTE | 2019-11-25 16:13 | PN ---
Subjective Date of Service: 11/25/19 Interval History: HOSPITALIST PROGRESS NOTE Patient seen and examined at bedside. Care reviewed and d/w Malgorzata Latif RN. She c/o right flank pain radiating to right inguinal area that started overnight. Pain is described as severe and she cannot get comfortable in bed. Denies N/V/D. Last night's LUQ pain is improved. Family History: Unchanged from Admission Social History: Unchanged from Admission Past Medical History: Unchanged from Admission Objective Active Medications: Hydromorphone HCl (Dilaudid Inj*) 0.5 mg IV SLOW PU Q3H PRN PRN Reason: PAIN - SEVERE Last Admin: 11/25/19 15:11 Dose: 0.5 mg Sodium Chloride (Ns 0.9% 1000 Ml) 1,000 mls @ 100 mls/hr IV PER RATE [facility] Last Admin: 11/25/19 10:18 Dose: 100 mls/hr Ketorolac Tromethamine (Toradol Inj*) 15 mg IV PUSH Q6H [facility] Stop: 11/25/19 21:01 Last Admin: 11/25/19 09:30 Dose: 15 mg Vital Signs - 8 hr 11/25/19 11/25/19 11/25/19 11:00 11:53 13:14 Temperature 97.5 F Pulse Rate 65 Respiratory 16 20 18 Rate Blood Pressure 130/84 (mmHg) O2 Sat by Pulse 97 Oximetry 11/25/19 11/25/19 15:11 15:22 Temperature 97.9 F Pulse Rate 65 Respiratory 20 16 Rate Blood Pressure 130/88 (mmHg) O2 Sat by Pulse 97 Oximetry Oxygen Devices in Use Now: None Appearance: Pleasant lady lying in bed, lying on her left side, cannot find a comfortable position Eyes: No Scleral Icterus Ears/Nose/Mouth/Throat: Mucous Membranes Moist Neck: Trachea Midline Respiratory: Symmetrical Chest Expansion and Respiratory Effort, Clear to Auscultation Cardiovascular: RRR - Normal S1 and S2 Abdominal: NL Sounds; No Tenderness; No Distention, - - No CVAT Extremities: No Edema Neurological: Alert and Oriented x 3, NL Muscle Strength and Tone Result Diagrams: 11/25/19 09:13 11/25/19 09:13 Assess/Plan/Problems-Billing Assessment: Mrs Hauser is a 49yo F with PMH of SMA syndrome s/p surgery, s/p cholecystectomy, provoked DVT (after knee surgery), nephrolithiasis, vitamin B12 deficiency, anxiety, who presented to ED with c/o abdominal pain and LFT elevation. - Patient Problems (1) Abdominal pain Comment: - Her left abdominal pain is improved, but overnight she started to have RUQ pain radiating to her back and inguinal area. - Abdome US 11/24/2019 showed CBD 1.1cm, no nephrolithiasis or hydronephrosis. - MRCP showed moderate post cholecystectomy biliary dilation and 0.5cm pancreatic ductal dilation. No choledocolithiasis. - Will check CT abd without contrast as her symptoms today suggest renal colic. CT done at [place] 11/19/2019 showed some fullness of the left renal collecting system and impression at that time was she had just passed a kidney stone. - UA did not show hematuria. (2) Transaminitis Comment: - Could be secondary to a stone that passed and was not seen on MRCP, as her LFTs are already trending down. - GI consult requested - recommended hepatitis panel, APAP and salicylate level , EBV, HSV, CMV, FANNY, AMA, anti smooth muscle, ceruloplasmine, celiac panel, iron studies, and INR (all ordered). (3) DVT prophylaxis Comment: - SCDs. (4) Full code status Status and Disposition: OBV
[2019-11-25 20:42] LABS: Urine Appearance Cloudy; Urine Bilirubin Negative (Negative); Urine Blood Negative (Negative); Urine Color Yellow; Urine Glucose Negative (Negative); Urine Ketones 1+ (Negative); Urine Nitrite Negative (Negative); Urine Protein Negative (Negative); Urine Specific Gravity 1.012 (1.010-1.030); Urine Urobilinogen Negative (Negative)
[2019-11-25] MEDS ORDERED: Ondansetron INJ* 2 MG/ML VIAL IV PRN (22:00)
--- NOTE | 2019-11-25 22:05 | CONS ---
CC: Dr. Lindsay Davila* GASTROENTEROLOGY CONSULTATION REPORT: DATE OF CONSULT: 11/25/19 REQUESTING PROVIDER: Dr. Lindsay Davila. INDICATION: Abdominal pain and abnormal LFTs. HISTORY OF PRESENT ILLNESS: Ms. Hauser is a 49-year-old woman with a history of superior mesenteric artery syndrome, status post surgery, who is admitted with abdominal discomfort and elevated liver enzymes. History allegedly obtained from the patient. She reports having surgery for SMA syndrome at least 7 years ago in [place]. Over the last year or 2, she has had intermittent abdominal discomfort. She reports having had a workup at either [place] or [facility] 2 years ago, which demonstrated some sort of colitis as well as gastroparesis. She did not follow up for these conditions. She believes she was given a course of antibiotics for the colitis but no other therapy. She does not think it was Crohn's or ulcerative colitis, although she is not certain. She describes intermittent abdominal pain over the past year in particular. The pain is usually in the upper abdomen. Symptoms are worse over the past week. Her upper abdominal discomfort is associated with nausea. No vomiting. The upper abdominal pain seems to radiate to her left flank. She has had more reflux over the past week. She has several loose bowel movements per day chronically, although she thinks that the stool might be a bit more watery over the last week. She has been intermittently febrile with a T-max of 101 on the weekend. No URI symptoms or other symptoms other than the abdominal discomfort. She was scheduled for outpatient GI evaluation but presented to the ED given the acute worsening of her symptoms. She denies any weight loss. Since admission, she has noted that her urine output may be decreased as compared to her normal. She also is describing some right flank discomfort, which is more bothersome than the upper abdominal pain. Of note, Ms. Hauser was seen last week at [facility] and was told she might have passed a kidney done. She was discharged on oxycodone with Tylenol as well as Zofran at that time. GI consulted given the abdominal discomfort as well as liver enzymes, which were moderately elevated in the emergency room with an ALT of of 568, AST 249, and alk phos of 270. This is in comparison to normal labs in July. PAST MEDICAL HISTORY: 1. Superior mesenteric artery syndrome, status post surgery, details unknown. The surgery was performed around 7 years ago in [place]. 2. History of DVT after knee surgery, not on anticoagulation any longer. 3. Anxiety. 4. Vitamin B12 deficiency. PAST SURGICAL HISTORY: 1. Cholecystectomy. 2. Right wrist surgery. 3. Mesenteric artery surgery. 4. Knee surgery. 5. Left ankle fracture repair. HOME MEDICATIONS: 1. Vitamin D 5000 units daily. 2. Oxycodone/acetaminophen 5/325 every 4 hours as needed for pain. This started on after she was seen in the [facility] ED. 3. Probiotic daily. 4. Zofran as needed for nausea. This started on after the ED visit. 5. Vitamin B12 injections every 2 weeks. ALLERGIES: Sensitive to MORPHINE and allergic to CODEINE. FAMILY HISTORY: No known GI or liver disease. SOCIAL HISTORY: Drinks 2 glasses of wine a night. No drug use. Nonsmoker. REVIEW OF SYSTEMS: Complete review of systems negative except as mentioned above. PHYSICAL EXAM: Vital Signs: Febrile since arrival to the hospital, heart rate in the 60s, blood pressure 130/88, 97% on room air. General: Pleasant- appearing woman. Comfortable. No acute distress. HEENT: Mucous membranes are moist. Cardiovascular: Regular rate and rhythm. Pulmonary: Breathing comfortably. Abdomen: Soft and nondistended. Mild tenderness to deep palpation in the upper abdomen. Extremities: No significant edema. Skin: No jaundice. Neuro: A and O x3. No encephalopathy. DIAGNOSTIC STUDIES/LAB DATA: Labs reviewed. White count 3.4 on admission and down to 2.9. Absolute lymphocytes low at 0.7. INR 0.99. Comprehensive panel notable for an AST of 249 at admission, now down to 156; ALT 568 down to 364; alk phos 270, down to 205; bilirubin 0.6 and stable on repeat at 0.5. Lipase not elevated. Tylenol level less than 15. Salicylate level less than 2.5. Influenza A and B negative. Hepatitis A IgM negative. Hepatitis B surface antigen and B core IgM antibody negative. Hep C antibody negative. Imaging: CT abdomen and pelvis without contrast without definite obstructive uropathy. Abdominal ultrasound on 11/24/19 with ectasia of the CBD up to 1.1 cm. Head of the pancreas appeared normal. Tail of the pancreas not visualized well. MRCP on 11/24/19 read as cholecystectomy associated biliary and proximal pancreatic ductal dilation. I reviewed this with Dr. Pederson from Radiology this morning. He mentions that the CBD looks ectatic but is not dilated. He does not appreciate any pancreatic ductal dilation. No CBD stones or filling defects noted. No obvious biliary ductal beading or stricturing. IMPRESSION AND RECOMMENDATION: Ms. Hauser is a 49-year-old woman with an unusual history of superior mesenteric artery syndrome, status post mesenteric artery surgery, who is admitted with abdominal discomfort and moderately elevated transaminase and alk phos levels. Ms. Hauser has some intermittent chronic gastrointestinal symptoms with possible diagnosis of a colitis (question infectious versus inflammatory) and gastroparesis. She has not been seeing GI for followup nor do I have the full records clarifying these diagnoses. Her upper abdominal pain worsened over the last week. She has had some intermittent fevers at home without any other symptoms. Labs are interesting in that there is moderate elevation in her AST and ALT as well as an elevation in her alk phos. Bilirubin remains normal. Her labs are also notable for leukopenia. Imaging is demonstrating an ectatic CBD without any evidence of stricturing or obstruction. Presentation with the fever, neutropenia, and elevated LFTs raise question of possible viral infectious hepatitis. Not sure how this would be connected to her right lower flank pain. I am reassured to see that her liver enzymes do seem to be improving on recheck this morning. At this point, I would recommend supportive care and continued monitoring of her liver enzymes to ensure further improvement. We will also request serologic workup to evaluate causes of acute liver injury. Lyme monitor, CBC, and comprehensive panel daily. I spoke with Dr. Davila earlier and requested that EBV, HSV, CMV serologies be checked. We would also check FANNY, AMA, anti-smooth muscle antibody, ceruloplasmin, celiac panel, and iron studies be checked. We would request for the workup that patient underwent within the past 2 years at [facility] , which seemed to include an EGD, colonoscopy, and gastric emptying study. Continue diet as tolerated. Encourage p.o. intake or IV fluids. Monitor urine output as the patient reports that this has dropped since admission. Thank you very much for this consult. GI will continue to follow. [id number]/[facility] #: [id number] [facility]
[2019-11-26] MEDS: HYDROmorphone INJ* 0.5 MG/0.5 ML SYRINGE IV SLOW PU PRN ×4 (00:32→09:45)
[2019-11-26 06:13] LABS: ABS Eosinophils 0.1 10^3/ul (0-0.6); ABS Lymphocytes 0.8 10^3/ul (1.0-4.8); ABS Monocytes 0.4 10^3/ul (0-0.8); ABS Neutrophils 1.5 10^3/ul (1.5-7.7); Eosinophil % 3.3 %; Hematocrit 39 % (35-47); Hemoglobin 13.4 g/dL (12.0-16.0); Lymphocyte % 29.4 %; Mean Corpuscular HGB Conc 35 g/dL (31-36); Mean Corpuscular Hemoglobin 33 pg (27-31); Mean Corpuscular Volume 94 fL (80-97); Mean Platelet Volume 8.3 fL (7.4-10.4); Nucleated Red Blood Cells % 0.1; Platelet Count 146 10^3/uL (150-450); Red Blood Count 4.12 10^6 /uL (3.70-4.87); Red Cell Distribution Width 13 % (10-15); White Blood Count 2.9 10^3/uL (3.5-10.8)
[2019-11-26 06:44] LABS: Albumin 3.2 g/dL (3.2-5.2); Albumin/Globulin Ratio 1.5 (1-3); BUN/Creatinine Ratio 7.8 (8-20); Calcium 7.7 mg/dL (8.6-10.3); EGFR African American 119.3 (>60); EGFR Non-African American 98.6 (>60); Globulin 2.2 g/dL (2-4); Potassium 3.4 mmol/L (3.5-5.0); Total Bilirubin 0.5 mg/dL (0.2-1.0); Total Protein 5.4 g/dL (6.4-8.9)
[2019-11-26] MEDS: NS 0.9% 1000 ML** 1,000 ML IV SCH (07:18)
[2019-11-26] MEDS ORDERED: oxyCODONE TAB* 5 MG TAB PO PRN (10:44)
[2019-11-26] MEDS ORDERED: Gabapentin CAP(*) 100 MG PO ONE (10:44)
[2019-11-26] MEDS ORDERED: Potassium Chlor TAB* 20 MEQ TAB.ER PO ONE (10:46)
[2019-11-26 15:07] LABS: Herpes Simplex Virus I IgG AB Positive (Negative); Herpes Simplex Virus II IgG AB Negative (Negative)
[2019-11-26 15:08] LABS: Cytomegalovirus IgG Antibody Negative (Negative); EBV Capsid Ag IgG Ab Positive (Negative); EBV Capsid Ag IgM Ab Negative (Negative); Epstein-Barr Nuclear Antigen Positive (Negative)
[2019-11-26 15:44] LABS: Ceruloplasmin 25.5 mg/dL
[2019-11-26] MEDS: oxyCODONE TAB* 5 MG TAB PO PRN ×2 (17:45→22:06)
[2019-11-26] MEDS: Lactobacillus Acidophilus* 1 TAB PO SCH (20:53)
[2019-11-26] MEDS: Gabapentin CAP(*) 100 MG PO SCH (20:57)
[2019-11-26 21:44] LABS: Tissue Transglutaminase IgA Ab <1.2 U/mL
--- NOTE | 2019-11-26 21:53 | PN ---
Subjective Date of Service: 11/26/19 Interval History: patient reports that she continues to left sided upper abd pain. Patient also reports that she continues to have persistent diarrhea. denies black or tarry stools. reports that pain to the right side has subsided Patient denies fever or chills overnight, denies chest pain or shortness of breath. denies vomiting labs reviewed - liver function continue to improve Family History: Unchanged from Admission Social History: Unchanged from Admission Past Medical History: Unchanged from Admission Objective Active Medications: Gabapentin (Neurontin Cap(*)) 100 mg PO BID COUNT INCLUDES THE [facility] Last Admin: 11/26/19 20:57 Dose: 100 mg Lactobacillus Rhamnosus (Lactobacillus Acidophilus*) 1 tab PO BID COUNT INCLUDES THE [facility] Last Admin: 11/26/19 20:53 Dose: 1 tab Ondansetron HCl (Zofran Inj*) 4 mg IV Q4H PRN PRN Reason: NAUSEA/VOMITING Last Admin: 11/26/19 06:11 Dose: 4 mg Oxycodone HCl (Roxycodone Tab*) 5 mg PO Q4H PRN PRN Reason: PAIN - SEVERE Last Admin: 11/26/19 17:45 Dose: 5 mg Vital Signs - 8 hr 11/26/19 11/26/19 11/26/19 14:49 16:08 17:17 Temperature 98.2 F Pulse Rate 58 Respiratory 18 16 18 Rate Blood Pressure 145/90 (mmHg) O2 Sat by Pulse 97 Oximetry 11/26/19 11/26/19 11/26/19 17:45 20:50 20:57 Temperature Pulse Rate Respiratory 18 16 16 Rate Blood Pressure (mmHg) O2 Sat by Pulse Oximetry Oxygen Devices in Use Now: None Appearance: appears comfortable , resting in bed Eyes: No Scleral Icterus Ears/Nose/Mouth/Throat: Mucous Membranes Moist Neck: NL Appearance and Movements; NL JVP, Trachea Midline Respiratory: Symmetrical Chest Expansion and Respiratory Effort, Clear to Auscultation Cardiovascular: NL Sounds; No Murmurs; No JVD, No Edema Abdominal: NL Sounds; No Tenderness; No Distention Extremities: No Edema, No Clubbing, Cyanosis Skin: No Rash or Ulcers Neurological: Alert and Oriented x 3 Nutrition: Taking PO's Result Diagrams: 11/26/19 05:53 11/27/19 06:41 Assess/Plan/Problems-Billing Assessment: Mrs Hauser is a 49yo F with PMH of SMA syndrome s/p surgery, s/p cholecystectomy, provoked DVT (after knee surgery), nephrolithiasis, vitamin B12 deficiency, anxiety, who presented to ED with c/o abdominal pain and LFT elevation. - Patient Problems (1) Abdominal pain Current Visit: Yes Status: Acute Code(s): R10.9 - UNSPECIFIED ABDOMINAL PAIN SNOMED Code(s): 71289354 Comment: - Her left abdominal pain is improved, but overnight she started to have RUQ pain radiating to her back and inguinal area- RUQ abd pain resolved - continues to have LUQ abd pain - Abd US 11/24/2019 showed CBD 1.1cm, no nephrolithiasis or hydronephrosis. - MRCP showed moderate post cholecystectomy biliary dilation and 0.5cm pancreatic ductal dilation. No choledocolithiasis. - Will check CT abd without contrast as her symptoms today suggest renal colic. CT done at [facility] 11/19/2019 showed some fullness of the left renal collecting system and impression at that time was she had just passed a kidney stone. CT showed - no acute findings, no obstructive uropathy - UA did not show hematuria. - suspect that some of her pain could be related to nerve pain possibly from scar tissue, exacerbated by her increased diarrhea. I will start gabapentin today to assist with her pain. - clarice reports she continues to have diarrhea - suspect there may be a component of viral gastroenteritis as well. - will add probiotic BID (2) Transaminitis Current Visit: Yes Status: Acute Code(s): R74.0 - NONSPEC ELEV OF LEVELS OF TRANSAMNS & LACTIC ACID DEHYDRGNSE SNOMED Code(s): 712508127 Comment: - Could be secondary to a stone that passed and was not seen on MRCP , as her LFTs are already trending down. - GI consult requested - recommended hepatitis panel, APAP and salicylate level , EBV, , CMV, FANNY, AMA, anti smooth muscle, ceruloplasmine, iron studies, and INR (all ordered). celiac panel- was negative HSV- HSV1 was positive ESV IGG and nuclear antibody - positive -which shows she was exposed in the past and not a current acitive infection hepatitis panel - negative Liver function continue to trend down (3) DVT prophylaxis Current Visit: Yes Status: Acute Code(s): Z29.9 - ENCOUNTER FOR PROPHYLACTIC MEASURES, UNSPECIFIED SNOMED Code(s): 213422497 Comment: - SCDs. (4) Full code status Current Visit: Yes Status: Acute Code(s): Z78.9 - OTHER SPECIFIED HEALTH STATUS SNOMED Code(s): 023923291 Status and Disposition: OBV
[2019-11-26 23:30] LABS: Immunoglobulin A 140 mg/dL (61 - 356)
[2019-11-27] MEDS: oxyCODONE TAB* 5 MG TAB PO PRN ×2 (03:00→06:58)
[2019-11-27 07:26] LABS: Albumin 3.7 g/dL (3.2-5.2); Albumin/Globulin Ratio 1.5 (1-3); Calcium 8.6 mg/dL (8.6-10.3); EGFR African American 113.2 (>60); EGFR Non-African American 93.6 (>60); Globulin 2.5 g/dL (2-4); Indirect Bilirubin 0.5 mg/dL (0.3-1.0); Potassium 3.6 mmol/L (3.5-5.0); Total Bilirubin 0.6 mg/dL (0.2-1.0); Total Protein 6.2 g/dL (6.4-8.9)
[2019-11-27] MEDS: Gabapentin CAP(*) 100 MG PO SCH (09:47)
[2019-11-27] MEDS: Lactobacillus Acidophilus* 1 TAB PO SCH (09:47)
[2019-11-27 11:36] VITALS: BP 122/87
[2019-11-27 18:16] LABS: Mitochondria M2 Antibody <0.1 U
--- NOTE | 2019-11-27 21:37 | DS ---
DISCHARGE SUMMARY: DATE OF ADMISSION: 11/24/19 DATE OF DISCHARGE: 11/27/19 PROVIDER: Lizbet Amos NP PRIMARY CARE PROVIDER: Dr. Tao Daugherty. ATTENDING PHYSICIAN WHILE IN THE HOSPITAL: Dr. Cele Baeza * (dictated by Lizbet Amos NP). PRIMARY DIAGNOSES: 1. Transaminitis. 2. Viral gastroenteritis. 3. Abdominal pain. SECONDARY DIAGNOSES: 1. Superior mesenteric artery syndrome, status post surgery. 2. History of deep venous thrombosis. 3. Vitamin B12 deficiency. 4. Anxiety. STUDIES COMPLETED WHILE IN THE HOSPITAL: She had an ultrasound of her abdomen, radiologist's impression: There is ectasia of the common bile duct up to 1.1 cm. The patient is status post cholecystectomy. She had an MRCP, radiologist's impression: Cholecystectomy associated with biliary and proximal pancreatic duct dilation, simple hepatic cyst. No followup imaging indicated per ACR guidelines. She had a chest x-ray, radiologist's impression: Elevated lung volumes suggest potential obstructive lung disease, no acute pulmonary or cardiac process is evident. She had a CT of the abdomen and pelvis. No definite obstructive uropathy is noted. No other masses or fluid collections are noted. Postoperative changes in the right upper quadrant. CONSULTATION: From Dr. Howard. Her impression was there was a concern of possible viral infectious hepatitis, but it was unclear whether this would be connected to her right lower flank pain. Dr. Howard was reassured to see liver enzymes were improving and at her time of evaluation, recommended supportive care and continuing monitoring the liver enzymes to ensure improvement and serology workup. The patient did have labs sent for EBV, HSV, CMV, FANNY, AMA, antismooth muscle antibody, celiac panel and iron were all checked. DISCHARGE MEDICATIONS: New home medications: 1. Gabapentin 100 mg twice daily, may increase to 3 times daily as needed for pain. 2. Probiotic 1 tablet twice daily. Continued home medications: 1. Vitamin D 5000 units p.o. daily. 2. Oxycodone/acetaminophen 5/325 one tablet every 4 hours as needed for severe pain. 3. Zofran 4 mg every 6 hours as needed for nausea. 4. Vitamin B12 injections 1000 mcg every 2 weeks. HISTORY OF PRESENT ILLNESS AND HOSPITAL COURSE: Ms. Hauser is a 49-year-old female with a past medical history significant for SMA, status post surgery; history of a DVT after a knee surgery; vitamin B12 deficiency, and anxiety, who presented to the emergency room complaining of left-sided abdominal pain up under her left rib radiating into her back. The patient reports that the pain started last Saturday approximately 10 days ago. She reports the pain comes in waves, intermittent, stabbing, throbbing pain, and causes burning sensation in the back. Due to this pain, the patient was initially seen in [place] [facility] and was diagnosed with kidney stone, prescribed Zofran and oxycodone for pain and was discharged home. She followed up with her primary care, who recommended a GI consult for which she is scheduled at the end of the month. The pain became worse, so she called her primary care doctor's office back who recommended she report to the emergency room for further evaluation. The patient does report that she had a fever with T-max of 101. The patient was afebrile on the time of admission. During this admission, the patient was noted to have transaminitis with elevated liver functions. Her AST on arrival was 249, on day of discharge was 70. Her ALT was 568 on a day of admission, day of discharge it was 222. Her alkaline phosphatase was 270 on admission and on day of discharge it was down to 161. The patient did have episode of increased diarrhea during this hospitalization, which improved with initiation of probiotic. The patient reports that her diarrhea has resolved. Today on her day of discharge, the patient reports that she is feeling much better. The patient during this hospitalization was started on gabapentin for the possibility of her left upper quadrant abdominal pain being associated with nerve-related pain, possibly related to adhesions of scar tissue from her SMA surgery. The patient does report improvement of her pain after starting the gabapentin. The patient also during this hospitalization did develop some right flank pain and had presentation consistent with possible kidney stone. She did have a CT of the abdomen and pelvis again that did not show any evidence of kidney stone, nephrolithiasis, or hydronephrosis. Her urine was without any evidence of blood , checked 2 times during this hospitalization. Her right-sided abdominal pain lasted less than 24 hours and completely resolved. It is unclear the cause of her right- sided abdominal pain. At this time on the day of discharge, Ms. Hauser is feeling well, she has no complaints. REVIEW OF SYSTEMS: She denies any chest pain or shortness of breath. Denies any fever or chills. Denies any nausea or vomiting. She does complain of left upper quadrant pain, now currently rated at a 2 and well controlled. She does report her diarrhea has resolved. She has no open rashes, lesions, or sores. PHYSICAL EXAMINATION: General: At this time, Ms. Hauser is alert and oriented, resting on her hospital bed. She is in no acute distress. Vital Signs: Blood pressure 122/77, temperature is 97.7, heart rate 67, respirations 16, O2 saturation 95%. HEENT: Head is atraumatic, normocephalic. Eyes: EOMs are intact. Sclerae anicteric and not pale. Oral mucosa is moist. Neck is supple. Lungs are clear to auscultation bilaterally. No wheezes, rales or rhonchi. Cardiac: S1, S2. Regular rate and rhythm. No murmurs, rubs or gallops. The abdomen is soft and nontender. Bowel sounds are present x4. Extremities: She is able to move all 4 extremities. There is no clubbing or cyanosis. Neurologic: She is awake, alert and oriented x3. Speech is clear. Thought process is intact. Skin is intact. DISCHARGE PLAN: At this time, Ms. Hauser will be discharged home. 1. Viral gastroenteritis. It is likely that the patient has had a component of viral gastroenteritis with increased diarrhea and increased abdominal pain with associated fever. This has all improved since admission to the hospital and has resolved. 2. Abdominal pain. She presented with left upper quadrant abdominal pain that has improved since the initiation of gabapentin. The patient did receive IV fluids, Zofran and pain management during this hospitalization for her left upper quadrant abdominal pain, which has improved. She can continue her Percocet as previously prescribed for her abdominal pain every 4 hours as needed for severe pain and continue on gabapentin. She can take gabapentin 100 mg twice daily and increase to 3 times daily as needed for pain. 3. Transaminitis. The patient did have elevated liver functions, so she was seen by GI during this consultation and had multiple serology panels ordered, which most of them have resulted and were negative for any acute serology. Her hepatitis panel was negative. It was initially thought this could be related to viral infectious hepatitis, but her liver functions have improved dramatically since her admission. I would recommend that we continue to monitor her liver functions and have a repeat CMP in 1 week. FOLLOWUP: The patient should follow up with her primary care provider in 4 to 7 days. She should follow up with GI, Dr. Howard; call the office for an appointment. She does report she has an appointment scheduled with GI at the end of this month. The patient was instructed to return to the emergency room for any uncontrollable abdominal pain, fever, chills, nausea, uncontrollable vomiting, or any other concerning symptoms. At this time, the patient is stable for discharge home. DISPOSITION AT DISCHARGE: Home. CONDITION AT DISCHARGE: Stable. TIME SPENT: Time spent on this discharge was 45 minutes, greater than half that time was spent at the bedside reviewing discharge plans and instructions. I have discussed this with my attending, Dr. Cele Baeza, she is in agreement with my plan. LIZBET AMOS NP [id number]/[facility] #: [id number] [facility]
[2019-11-28 16:48] LABS: Smooth Muscle Antibody Negative (Negative)
== END 2019-11-27 12:05 | disposition home or self-care (01) | DRG 861 ==
LOC: ED 13:16 → MED 18:53 → OBSVTOIN 11-26 12:00
PROVIDERS: ADMIT Nurse Practitioner; ATTEND Internal Medicine
DX: R74.0 Nonspecific elevation of levels of transaminase and lactic acid dehydrogenase [LDH] (principal); K55.1 Chronic vascular disorders of intestine; A08.4 Viral intestinal infection, unspecified; E53.8 Deficiency of other specified B group vitamins; F41.9 Anxiety disorder, unspecified; R19.7 Diarrhea, unspecified; R10.12 Left upper quadrant pain; Z86.718 Personal history of other venous thrombosis and embolism; Z90.49 Acquired absence of other specified parts of digestive tract; Z79.899 Other long term (current) drug therapy; Z88.5 Allergy status to narcotic agent; Z82.49 Family history of ischemic heart disease and other diseases of the circulatory system; Z80.3 Family history of malignant neoplasm of breast; R10.11 Right upper quadrant pain
CPT/HCPCS: 36415; 71046; 74176; 74181; 76376; 76700; 80048; 80053; 80074; 80076; 80329; 81003; 82390; 82728; 82784; 83516; 83540; 83550; 83690; 84702; 85025; 85610; 86038; 86255; 86644; 86645; 86664; 86665; 86695; 86696; 96361; 96374; 96375; 99284; A9270-GY; G0378; G0480; J1170; J1885; J2405; J3010